=== PATIENT | male | born 1950 | race African-American/Black ===

== ENCOUNTER 2019-12-19 03:05 | Inpatient (IN) ==
[2019-12-19] MEDS ORDERED: ceFAZolin 1,000 MG VIAL IM ONE (03:20)
[2019-12-19 05:02] LABS: Basophils % 0.2 % (0.0-0.8); Hematocrit 44.2 VOL% (42.0-52.0); Hemoglobin 14.5 GM/DL (14.0-18.0); Immature Granulocytes % 0.4 %; Immature Granulocytes Absolute 0.04 #; Lymphocytes # 1.2 10*3/uL (1.4-4.0); Lymphocytes % 12.1 % (21.2-54.2); Mean Corpuscular HGB Conc 32.8 GM/DL (32-36); Mean Corpuscular Volume 86.8 FL (87-102); Mean Platelet Volume 10.5 FL (9.6-12.0); Monocytes % 6.5 % (1.7-12.7); Neutrophils % 80.8 % (38.7-73.9); Platelet Count 190 T/CUMM (130-400); Red Blood Count 5.09 MC/CUMM (3.8-5.5); Red Cell Distribution Width 14.6 % (9.3-17.3); White Blood Count 9.5 T/CUMM (4-12)
[2019-12-19 05:18] LABS: PT Patient Result 10.6 SECS (9.8-11.9)
[2019-12-19 05:24] LABS: Bilirubin,Total 0.8 MG/DL (0.2-1.0); Calcium 9.5 MG/DL (8.5-10.1); Osmolality,Calculated 264.4 MOS/KG (273-304); Total Protein 7.9 G/DL (6.4-8.3)
[2019-12-19] MEDS ORDERED: DEXTROSE 10% 250 ML BAG IV PRN (05:47)
[2019-12-19] MEDS ORDERED: ONDANSETRON 4 MG/2 ML VIAL IV PRN (05:47)
[2019-12-19] MEDS ORDERED: GLUCAGON 1 MG VIAL IM PRN (05:47)
[2019-12-19] MEDS ORDERED: MORPHINE 4 MG/1 ML VIAL SUBCUT PRN (05:55)
[2019-12-19] MEDS ORDERED: ceFAZolin 2,000 MG in PREMIX 1 EACH IV ONE (07:19)
[2019-12-19] MEDS ORDERED: BUPIVACAINE MPF 0.25% 30 ML VIAL ONE ×2 (07:51→08:31)
[2019-12-19] MEDS ORDERED: MORPHINE 4 MG/1 ML VIAL IV PRN ×2 (08:00)
[2019-12-19] MEDS ORDERED: DEXAMETHASONE 4 MG/1 ML VIAL ONE (08:31)
[2019-12-19] MEDS: LACTATED RINGERS 1,000 ML IV SCH ×2 (08:45→13:18)
[2019-12-19] MEDS ORDERED: BACITRACIN OINT 0.9 GM PACK TOP ONE (09:15)
[2019-12-19] MEDS ORDERED: ACETAMINOPHEN 325 MG TABLET PO PRN (10:04)
[2019-12-19] MEDS ORDERED: MAGNESIUM HYDROXIDE SUSP 30 ML UDCUP PO PRN (10:04)
[2019-12-19] MEDS ORDERED: propofoL 200 MG/20 ML VIAL IV ONE (10:17)
[2019-12-19] MEDS ORDERED: LIDOCAINE 2% 5 ML VIAL ONE (10:18)
[2019-12-19] MEDS ORDERED: SEVOFLURANE 1 UNIT/15 MINUTE INH ONE (10:18)
[2019-12-19] MEDS ORDERED: MIDAZOLAM 2 MG/2 ML VIAL ONE (10:18)
[2019-12-19] MEDS ORDERED: fentaNYL 100 MCG/2 ML VIAL ONE (10:19)
[2019-12-19] MEDS ORDERED: PHENYLEPHRINE 1 MG/10 ML SYRINGE IV ONE (10:19)
[2019-12-19] MEDS: ceFAZolin 2,000 MG in PREMIX 1 EACH IV SCH (16:32)
[2019-12-19] MEDS: APIXABAN 2.5 MG TABLET PO SCH (21:12)
[2019-12-20] MEDS: ceFAZolin 2,000 MG in PREMIX 1 EACH IV SCH (01:04)
[2019-12-20 06:43] LABS: Basophils % 0.1 % (0.0-0.8); Hematocrit 37.8 VOL% (42.0-52.0); Hemoglobin 12.5 GM/DL (14.0-18.0); Immature Granulocytes % 0.3 %; Immature Granulocytes Absolute 0.04 #; Lymphocytes # 1.7 10*3/uL (1.4-4.0); Lymphocytes % 13.6 % (21.2-54.2); Mean Corpuscular HGB Conc 33.1 GM/DL (32-36); Mean Corpuscular Volume 86.1 FL (87-102); Monocytes % 10.8 % (1.7-12.7); Neutrophils % 75.2 % (38.7-73.9); Platelet Count 171 T/CUMM (130-400); Red Blood Count 4.39 MC/CUMM (3.8-5.5); Red Cell Distribution Width 14.2 % (9.3-17.3); White Blood Count 12.8 T/CUMM (4-12)
[2019-12-20 07:17] LABS: Calcium 9.1 MG/DL (8.5-10.1); Osmolality,Calculated 268.2 MOS/KG (273-304)
[2019-12-20] MEDS ORDERED: ATORVASTATIN 20 MG TABLET PO SCH (09:00)
[2019-12-20] MEDS ORDERED: LOSARTAN/HCTZ 50-12.5 MG TABLET PO SCH (09:00)
[2019-12-20] MEDS: APIXABAN 2.5 MG TABLET PO SCH (09:32)
[2019-12-20] MEDS ORDERED: POLYETHYLENE GLYCOL POWDER 17 GM PACK PO SCH (11:30)
[2019-12-20 12:32] VITALS: BP 134/64
== END 2019-12-20 16:20 | disposition home health service (06) | DRG 494 ==
LOC: N.ED 03:05 → N.EDINP 05:47 → N.3E 06:50
PROVIDERS: ADMIT Internal Medicine; ATTEND Internal Medicine

== ENCOUNTER 2020-03-17 15:12 | Inpatient (IN) ==
[2020-03-17] MEDS ORDERED: ONDANSETRON 4 MG/2 ML VIAL IV PRN (15:20)
[2020-03-17 19:19] LABS: Basophils # 0.1 10*3/uL (0.0-0.2); Basophils % 0.6 % (0.0-0.8); Eosinophils # 0.1 10*3/uL (0.0-0.87); Eosinophils % 0.6 % (0.00-10.9); Hematocrit 32.9 VOL% (42.0-52.0); Hemoglobin 10.8 GM/DL (14.0-18.0); Immature Granulocytes % 0.2 %; Immature Granulocytes Absolute 0.02 #; Lymphocytes # 1.7 10*3/uL (1.4-4.0); Lymphocytes % 19.7 % (21.2-54.2); Mean Corpuscular HGB Conc 32.8 GM/DL (32-36); Mean Corpuscular Volume 85.2 FL (87-102); Mean Platelet Volume 10.1 FL (9.6-12.0); Monocytes % 7.7 % (1.7-12.7); Neutrophils % 71.2 % (38.7-73.9); Platelet Count 259 T/CUMM (130-400); Red Blood Count 3.86 MC/CUMM (3.8-5.5); Red Cell Distribution Width 14.7 % (9.3-17.3); White Blood Count 8.5 T/CUMM (4-12)
[2020-03-17 19:40] LABS: Osmolality,Calculated 270.1 MOS/KG (273-304)
[2020-03-17] MEDS: DOCUSATE SODIUM 100 MG CAPSULE PO SCH (20:41)
[2020-03-17] MEDS: PIPERACILLIN/TAZOBACTAM 3,375 MG in SODIUM CHLORIDE 0.9% 100 ML IV SCH (21:53)
[2020-03-18] MEDS: PIPERACILLIN/TAZOBACTAM 3,375 MG in SODIUM CHLORIDE 0.9% 100 ML IV SCH ×3 (04:04→21:45)
[2020-03-18] MEDS: PANTOPRAZOLE 40 MG TABLET PO SCH ×2 (05:09→10:01)
[2020-03-18] MEDS: ENOXAPARIN 30 MG/0.3 ML SYRINGE SUBCUT SCH (10:01)
[2020-03-18] MEDS: BACITRACIN OINT 0.9 GM PACK TOP SCH (10:01)
[2020-03-18] MEDS: SODIUM HYPOCHLORITE 0.25% IRRIG 473 ML BOTTLE TOP SCH (10:01)
[2020-03-18] MEDS: DOCUSATE SODIUM 100 MG CAPSULE PO SCH (21:44)
[2020-03-19] MEDS: PIPERACILLIN/TAZOBACTAM 3,375 MG in SODIUM CHLORIDE 0.9% 100 ML IV SCH ×3 (05:42→22:19)
[2020-03-19] MEDS: ENOXAPARIN 30 MG/0.3 ML SYRINGE SUBCUT SCH (09:49)
[2020-03-19] MEDS: BACITRACIN OINT 0.9 GM PACK TOP SCH (09:49)
[2020-03-19] MEDS: LOSARTAN/HCTZ 50-12.5 MG TABLET PO SCH (09:49)
[2020-03-19] MEDS: PANTOPRAZOLE 40 MG TABLET PO SCH (09:50)
[2020-03-19] MEDS: SODIUM HYPOCHLORITE 0.25% IRRIG 473 ML BOTTLE TOP SCH (09:50)
[2020-03-19] MEDS: LINEZOLID INJ 600 MG in PREMIX 1 EACH IV SCH ×2 (10:23→21:18)
[2020-03-19] MEDS: DOCUSATE SODIUM 100 MG CAPSULE PO SCH (21:18)
[2020-03-20] MEDS: PIPERACILLIN/TAZOBACTAM 3,375 MG in SODIUM CHLORIDE 0.9% 100 ML IV SCH ×3 (06:55→20:55)
[2020-03-20] MEDS: ENOXAPARIN 30 MG/0.3 ML SYRINGE SUBCUT SCH (09:55)
[2020-03-20] MEDS: PANTOPRAZOLE 40 MG TABLET PO SCH (09:55)
[2020-03-20] MEDS: LOSARTAN/HCTZ 50-12.5 MG TABLET PO SCH (09:55)
[2020-03-20] MEDS: LINEZOLID INJ 600 MG in PREMIX 1 EACH IV SCH (09:56)
[2020-03-20] MEDS: BACITRACIN OINT 0.9 GM PACK TOP SCH ×2 (16:08→23:25)
[2020-03-20] MEDS: DOCUSATE SODIUM 100 MG CAPSULE PO SCH (20:54)
[2020-03-20] MEDS: SODIUM HYPOCHLORITE 0.25% IRRIG 473 ML BOTTLE TOP SCH (23:25)
[2020-03-21] MEDS: LINEZOLID INJ 600 MG in PREMIX 1 EACH IV SCH ×2 (01:16→09:37)
[2020-03-21] MEDS: PIPERACILLIN/TAZOBACTAM 3,375 MG in SODIUM CHLORIDE 0.9% 100 ML IV SCH ×3 (04:58→20:17)
[2020-03-21] MEDS: LOSARTAN/HCTZ 50-12.5 MG TABLET PO SCH (09:35)
[2020-03-21] MEDS: ENOXAPARIN 30 MG/0.3 ML SYRINGE SUBCUT SCH (09:35)
[2020-03-21] MEDS: PANTOPRAZOLE 40 MG TABLET PO SCH (09:35)
[2020-03-21] MEDS: BACITRACIN OINT 0.9 GM PACK TOP SCH (09:35)
[2020-03-21] MEDS: SODIUM HYPOCHLORITE 0.25% IRRIG 473 ML BOTTLE TOP SCH (09:36)
[2020-03-21] MEDS: DOCUSATE SODIUM 100 MG CAPSULE PO SCH (20:18)
[2020-03-22] MEDS: LINEZOLID INJ 600 MG in PREMIX 1 EACH IV SCH ×2 (00:37→11:55)
[2020-03-22] MEDS: PIPERACILLIN/TAZOBACTAM 3,375 MG in SODIUM CHLORIDE 0.9% 100 ML IV SCH ×3 (04:00→20:49)
[2020-03-22] MEDS: BACITRACIN OINT 0.9 GM PACK TOP SCH (08:50)
[2020-03-22] MEDS: LOSARTAN/HCTZ 50-12.5 MG TABLET PO SCH (08:50)
[2020-03-22] MEDS: PANTOPRAZOLE 40 MG TABLET PO SCH (08:50)
[2020-03-22] MEDS: SODIUM HYPOCHLORITE 0.25% IRRIG 473 ML BOTTLE TOP SCH (08:50)
[2020-03-22] MEDS: ENOXAPARIN 30 MG/0.3 ML SYRINGE SUBCUT SCH (08:50)
[2020-03-22] MEDS: DOCUSATE SODIUM 100 MG CAPSULE PO SCH (20:49)
[2020-03-23] MEDS: LINEZOLID INJ 600 MG in PREMIX 1 EACH IV SCH ×2 (00:51→12:56)
[2020-03-23] MEDS: PIPERACILLIN/TAZOBACTAM 3,375 MG in SODIUM CHLORIDE 0.9% 100 ML IV SCH ×3 (03:23→20:26)
[2020-03-23] MEDS: ENOXAPARIN 40 MG/0.4 ML SYRINGE SUBCUT SCH (09:01)
[2020-03-23] MEDS: PANTOPRAZOLE 40 MG TABLET PO SCH (09:02)
[2020-03-23] MEDS: LOSARTAN/HCTZ 50-12.5 MG TABLET PO SCH (09:02)
[2020-03-23] MEDS: BACITRACIN OINT 0.9 GM PACK TOP SCH (09:02)
[2020-03-23] MEDS: SODIUM HYPOCHLORITE 0.25% IRRIG 473 ML BOTTLE TOP SCH (09:02)
[2020-03-23] MEDS: DOCUSATE SODIUM 100 MG CAPSULE PO SCH (20:25)
[2020-03-24] MEDS: LINEZOLID INJ 600 MG in PREMIX 1 EACH IV SCH ×2 (00:35→11:07)
[2020-03-24] MEDS: PIPERACILLIN/TAZOBACTAM 3,375 MG in SODIUM CHLORIDE 0.9% 100 ML IV SCH ×3 (04:45→20:32)
[2020-03-24 06:18] LABS: Basophils % 0.5 % (0.0-0.8); Eosinophils # 0.1 10*3/uL (0.0-0.87); Eosinophils % 0.9 % (0.00-10.9); Hematocrit 36.7 VOL% (42.0-52.0); Hemoglobin 11.9 GM/DL (14.0-18.0); Immature Granulocytes % 0.3 %; Immature Granulocytes Absolute 0.02 #; Lymphocytes # 1.8 10*3/uL (1.4-4.0); Lymphocytes % 22.2 % (21.2-54.2); Mean Corpuscular HGB Conc 32.4 GM/DL (32-36); Mean Corpuscular Volume 84.2 FL (87-102); Mean Platelet Volume 10.5 FL (9.6-12.0); Monocytes % 13.4 % (1.7-12.7); Neutrophils % 62.7 % (38.7-73.9); Platelet Count 250 T/CUMM (130-400); Red Blood Count 4.36 MC/CUMM (3.8-5.5); Red Cell Distribution Width 14.6 % (9.3-17.3); White Blood Count 7.9 T/CUMM (4-12)
[2020-03-24 06:39] LABS: Calcium 9.9 MG/DL (8.5-10.1); Osmolality,Calculated 271.1 MOS/KG (273-304)
[2020-03-24] MEDS: ENOXAPARIN 40 MG/0.4 ML SYRINGE SUBCUT SCH (09:00)
[2020-03-24] MEDS: LOSARTAN/HCTZ 50-12.5 MG TABLET PO SCH (09:00)
[2020-03-24] MEDS: PANTOPRAZOLE 40 MG TABLET PO SCH (09:00)
[2020-03-24] MEDS ORDERED: LORazepam 1 MG TABLET PO PRN (09:52)
[2020-03-24 10:41] LABS: Albumin 3.5 G/DL (3.4-5.0); Bilirubin,Direct 0.19 MG/DL (0.0-0.20); Bilirubin,Indirect 0.4 MG/DL (0.0-1.0); Bilirubin,Total 0.6 MG/DL (0.2-1.0); Total Protein 8.6 G/DL (6.4-8.3)
[2020-03-24] MEDS: THIAMINE 100 MG TABLET PO SCH (10:46)
[2020-03-24] MEDS: BACITRACIN OINT 0.9 GM PACK TOP SCH (10:46)
[2020-03-24] MEDS: FOLIC ACID 1 MG TABLET PO SCH (10:46)
[2020-03-24] MEDS: MULTIVITAMIN (CENTRUM) TABLET PO SCH (10:46)
[2020-03-24] MEDS: SODIUM HYPOCHLORITE 0.25% IRRIG 473 ML BOTTLE TOP SCH (10:46)
[2020-03-24 11:04] LABS: Folate 15.3 NG/ML (5.4-24.0); Vitamin B12 912 PG/ML (211-911)
[2020-03-24] MEDS ORDERED: TUBERCULIN SKIN TEST 0.1 ML SYRINGE INTRADERM ONE (12:54)
[2020-03-24 14:49] LABS: Apearance,Urine CLEAR (Clear); Bilirubin,Urine Negative (Negative); Blood, Urine Negative (Negative); Glucose,Urine (UA) Negative (Negative); Ketones,Urine Negative (Negative); Nitrite,Urine Negative (Negative); Protein,Urine Negative; RBC,Urine 1 /HPF (0-4); Squamous Epithelial Cell,Urine Occasional /HPF (0-10); Urine Color Straw (Yellow); Urine Specific Gravity 1.005 (1.001-1.035); Urine Urobilinogen < 2.0 EU/DL (0.2-1.0); WBC,Urine <1 /HPF (0-6)
[2020-03-24 14:56] LABS: Barbiturates Screen,Urine Negative (Negative); Benzodiazepines Screen,Urine Negative (Negative); Cannabinoid Screen,Urine Positive (Negative); Opiate Screen,Urine Positive (Negative); Phencyclidine Screen,Urine Negative (Negative)
[2020-03-24] MEDS: DOCUSATE SODIUM 100 MG CAPSULE PO SCH (20:32)
[2020-03-25] MEDS: LINEZOLID INJ 600 MG in PREMIX 1 EACH IV SCH ×2 (00:03→13:42)
[2020-03-25] MEDS: PIPERACILLIN/TAZOBACTAM 3,375 MG in SODIUM CHLORIDE 0.9% 100 ML IV SCH ×3 (04:27→20:47)
[2020-03-25] MEDS ORDERED: HALOPERIDOL 5 MG/ML AMP IM PRN (08:45)
[2020-03-25] MEDS: THIAMINE 100 MG TABLET PO SCH (10:12)
[2020-03-25] MEDS: POTASSIUM CHLORIDE 10 MEQ TABLET PO SCH (10:13)
[2020-03-25] MEDS: PANTOPRAZOLE 40 MG TABLET PO SCH (10:13)
[2020-03-25] MEDS: SODIUM HYPOCHLORITE 0.25% IRRIG 473 ML BOTTLE TOP SCH (10:13)
[2020-03-25] MEDS: FOLIC ACID 1 MG TABLET PO SCH (10:13)
[2020-03-25] MEDS: LOSARTAN/HCTZ 50-12.5 MG TABLET PO SCH (10:13)
[2020-03-25] MEDS: ATORVASTATIN 40 MG TABLET PO SCH (10:13)
[2020-03-25] MEDS: BACITRACIN OINT 0.9 GM PACK TOP SCH (10:14)
[2020-03-25] MEDS: ASPIRIN EC 81 MG TABLET PO SCH (10:14)
[2020-03-25] MEDS: ENOXAPARIN 40 MG/0.4 ML SYRINGE SUBCUT SCH (10:14)
[2020-03-25] MEDS: LORazepam 1 MG TABLET PO SCH ×3 (12:26→20:47)
[2020-03-25] MEDS: MULTIVITAMIN (CENTRUM) TABLET PO SCH (12:27)
[2020-03-25 15:30] LABS: INR 1.1; PT Patient Result 11.4 SECS (9.8-11.9)
[2020-03-25] MEDS ORDERED: QUEtiapine 25 MG TABLET PO ONE (20:00)
[2020-03-25] MEDS: DOCUSATE SODIUM 100 MG CAPSULE PO SCH (20:47)
[2020-03-26] MEDS: LINEZOLID INJ 600 MG in PREMIX 1 EACH IV SCH ×2 (00:48→15:24)
[2020-03-26] MEDS: LORazepam 1 MG TABLET PO SCH ×3 (02:02→15:24)
[2020-03-26] MEDS: PIPERACILLIN/TAZOBACTAM 3,375 MG in SODIUM CHLORIDE 0.9% 100 ML IV SCH ×3 (04:46→20:41)
[2020-03-26 06:37] LABS: Basophils # 0.1 10*3/uL (0.0-0.2); Basophils % 0.5 % (0.0-0.8); Eosinophils % 0.4 % (0.00-10.9); Hematocrit 34.7 VOL% (42.0-52.0); Hemoglobin 11.1 GM/DL (14.0-18.0); Immature Granulocytes % 0.2 %; Immature Granulocytes Absolute 0.02 #; Lymphocytes # 1.3 10*3/uL (1.4-4.0); Lymphocytes % 13.8 % (21.2-54.2); Mean Corpuscular Volume 84.6 FL (87-102); Mean Platelet Volume 9.7 FL (9.6-12.0); Monocytes % 11.8 % (1.7-12.7); Neutrophils % 73.3 % (38.7-73.9); Platelet Count 239 T/CUMM (130-400); Red Cell Distribution Width 14.5 % (9.3-17.3); White Blood Count 9.5 T/CUMM (4-12)
[2020-03-26 07:09] LABS: Calcium 9.7 MG/DL (8.5-10.1); Osmolality,Calculated 276.5 MOS/KG (273-304)
[2020-03-26] MEDS ORDERED: MAGNESIUM SULF RIDER 2 GM in PREMIX 1 EACH IV PRN (07:12)
[2020-03-26] MEDS ORDERED: MAGNESIUM SULF RIDER 4 GM in PREMIX 1 EACH IV PRN (07:12)
[2020-03-26] MEDS: LOSARTAN/HCTZ 50-12.5 MG TABLET PO SCH (11:00)
[2020-03-26] MEDS ORDERED: ceFAZolin 1,000 MG in SYRINGE 1 EACH IV ONE (12:00)
[2020-03-26] MEDS ORDERED: HEPARIN/NACL 0.9% 2 UNITS/ML 2,000 ML IV ONE (12:39)
[2020-03-26] MEDS ORDERED: DEXMEDETOMIDINE 200 MCG/2 ML VIAL ONE (13:14)
[2020-03-26] MEDS ORDERED: ceFAZolin 1,000 MG VIAL ONE (14:07)
[2020-03-26] MEDS: BACITRACIN OINT 0.9 GM PACK TOP SCH (15:21)
[2020-03-26] MEDS: ASPIRIN EC 81 MG TABLET PO SCH (15:21)
[2020-03-26] MEDS: MULTIVITAMIN (CENTRUM) TABLET PO SCH (15:21)
[2020-03-26] MEDS: POTASSIUM CHLORIDE 10 MEQ TABLET PO SCH (15:22)
[2020-03-26] MEDS: ENOXAPARIN 40 MG/0.4 ML SYRINGE SUBCUT SCH (15:22)
[2020-03-26] MEDS: SODIUM HYPOCHLORITE 0.25% IRRIG 473 ML BOTTLE TOP SCH (15:22)
[2020-03-26] MEDS: FOLIC ACID 1 MG TABLET PO SCH (15:22)
[2020-03-26] MEDS: ATORVASTATIN 40 MG TABLET PO SCH (15:22)
[2020-03-26] MEDS: PANTOPRAZOLE 40 MG TABLET PO SCH (15:23)
[2020-03-26] MEDS: THIAMINE 100 MG TABLET PO SCH (15:23)
[2020-03-26] MEDS: LORazepam 2 MG/1 ML VIAL IV SCH ×2 (15:23→18:04)
[2020-03-26] MEDS ORDERED: fentaNYL 100 MCG/2 ML VIAL ONE (15:25)
[2020-03-26] MEDS ORDERED: TUBERCULIN SKIN TEST 0.1 ML SYRINGE INTRADERM ONE (17:00)
[2020-03-26] MEDS: DOCUSATE SODIUM 100 MG CAPSULE PO SCH (20:41)
[2020-03-26] MEDS ORDERED: QUEtiapine 25 MG TABLET PO ONE (21:00)
[2020-03-27] MEDS: LORazepam 2 MG/1 ML VIAL IV SCH ×2 (00:30→06:25)
[2020-03-27] MEDS: LINEZOLID INJ 600 MG in PREMIX 1 EACH IV SCH ×2 (00:42→14:54)
[2020-03-27] MEDS: PIPERACILLIN/TAZOBACTAM 3,375 MG in SODIUM CHLORIDE 0.9% 100 ML IV SCH ×3 (05:07→20:55)
[2020-03-27 06:26] LABS: Basophils % 0.4 % (0.0-0.8); Eosinophils # 0.1 10*3/uL (0.0-0.87); Eosinophils % 0.5 % (0.00-10.9); Hematocrit 33.3 VOL% (42.0-52.0); Hemoglobin 10.9 GM/DL (14.0-18.0); Immature Granulocytes % 0.3 %; Immature Granulocytes Absolute 0.03 #; Lymphocytes # 1.2 10*3/uL (1.4-4.0); Mean Corpuscular HGB Conc 32.7 GM/DL (32-36); Mean Corpuscular Volume 83.5 FL (87-102); Mean Platelet Volume 9.8 FL (9.6-12.0); Monocytes % 10.2 % (1.7-12.7); Neutrophils % 76.6 % (38.7-73.9); Platelet Count 214 T/CUMM (130-400); Red Blood Count 3.99 MC/CUMM (3.8-5.5); Red Cell Distribution Width 14.6 % (9.3-17.3); White Blood Count 9.7 T/CUMM (4-12)
[2020-03-27 06:50] LABS: Osmolality,Calculated 272.7 MOS/KG (273-304)
[2020-03-27] MEDS: LOSARTAN/HCTZ 50-12.5 MG TABLET PO SCH (09:41)
[2020-03-27] MEDS: POTASSIUM CHLORIDE 10 MEQ TABLET PO SCH (09:41)
[2020-03-27] MEDS: BACITRACIN OINT 0.9 GM PACK TOP SCH (09:41)
[2020-03-27] MEDS: ASPIRIN EC 81 MG TABLET PO SCH (09:41)
[2020-03-27] MEDS: MULTIVITAMIN (CENTRUM) TABLET PO SCH (09:41)
[2020-03-27] MEDS: FOLIC ACID 1 MG TABLET PO SCH (09:42)
[2020-03-27] MEDS: THIAMINE 100 MG TABLET PO SCH (09:42)
[2020-03-27] MEDS: ENOXAPARIN 40 MG/0.4 ML SYRINGE SUBCUT SCH (09:42)
[2020-03-27] MEDS: ATORVASTATIN 40 MG TABLET PO SCH (09:42)
[2020-03-27] MEDS: PANTOPRAZOLE 40 MG TABLET PO SCH (09:42)
[2020-03-27] MEDS ORDERED: LORazepam 2 MG/1 ML VIAL IV PRN (09:47)
[2020-03-27] MEDS: SODIUM HYPOCHLORITE 0.25% IRRIG 473 ML BOTTLE TOP SCH (12:06)
[2020-03-27] MEDS: POTASSIUM CHLORIDE 20 MEQ TABLET PO PRN ×4 (12:34→20:53)
[2020-03-27] MEDS: QUEtiapine 25 MG TABLET PO PRN (20:54)
[2020-03-27] MEDS: DOCUSATE SODIUM 100 MG CAPSULE PO SCH (20:55)
[2020-03-28] MEDS: LINEZOLID INJ 600 MG in PREMIX 1 EACH IV SCH (01:02)
[2020-03-28] MEDS: PIPERACILLIN/TAZOBACTAM 3,375 MG in SODIUM CHLORIDE 0.9% 100 ML IV SCH ×3 (04:27→20:40)
[2020-03-28 05:55] LABS: Basophils # 0.1 10*3/uL (0.0-0.2); Basophils % 0.6 % (0.0-0.8); Eosinophils # 0.1 10*3/uL (0.0-0.87); Eosinophils % 0.8 % (0.00-10.9); Immature Granulocytes % 0.4 %; Immature Granulocytes Absolute 0.04 #; Lymphocytes # 1.3 10*3/uL (1.4-4.0); Lymphocytes % 12.4 % (21.2-54.2); Mean Corpuscular HGB Conc 32.3 GM/DL (32-36); Mean Corpuscular Volume 85.2 FL (87-102); Mean Platelet Volume 9.6 FL (9.6-12.0); Monocytes % 11.7 % (1.7-12.7); Neutrophils % 74.1 % (38.7-73.9); Platelet Count 218 T/CUMM (130-400); Red Blood Count 3.64 MC/CUMM (3.8-5.5); Red Cell Distribution Width 14.6 % (9.3-17.3); White Blood Count 10.6 T/CUMM (4-12)
[2020-03-28 06:22] LABS: Calcium 9.2 MG/DL (8.5-10.1); Osmolality,Calculated 273.7 MOS/KG (273-304)
[2020-03-28] MEDS: MULTIVITAMIN (CENTRUM) TABLET PO SCH (09:42)
[2020-03-28] MEDS: BACITRACIN OINT 0.9 GM PACK TOP SCH (09:42)
[2020-03-28] MEDS: ASPIRIN EC 81 MG TABLET PO SCH (09:42)
[2020-03-28] MEDS: FOLIC ACID 1 MG TABLET PO SCH (09:43)
[2020-03-28] MEDS: ATORVASTATIN 40 MG TABLET PO SCH (09:43)
[2020-03-28] MEDS: ENOXAPARIN 40 MG/0.4 ML SYRINGE SUBCUT SCH (09:43)
[2020-03-28] MEDS: SODIUM HYPOCHLORITE 0.25% IRRIG 473 ML BOTTLE TOP SCH (09:43)
[2020-03-28] MEDS: LOSARTAN/HCTZ 50-12.5 MG TABLET PO SCH (09:43)
[2020-03-28] MEDS: THIAMINE 100 MG TABLET PO SCH (09:44)
[2020-03-28] MEDS: PANTOPRAZOLE 40 MG TABLET PO SCH (09:44)
[2020-03-28] MEDS ORDERED: BUPIVACAINE MPF 0.25% 30 ML VIAL ONE (11:39)
[2020-03-28] MEDS ORDERED: LIDOCAINE 1% 20 ML VIAL ONE (11:40)
[2020-03-28] MEDS ORDERED: DEXMEDETOMIDINE 200 MCG/2 ML VIAL ONE (11:51)
[2020-03-28] MEDS ORDERED: LACTATED RINGERS 1,000 ML IV SCH (12:00)
[2020-03-28] MEDS ORDERED: SEVOFLURANE 1 UNIT/15 MINUTE INH ONE (12:58)
[2020-03-28] MEDS ORDERED: LIDOCAINE 2% 5 ML VIAL ONE (12:58)
[2020-03-28] MEDS ORDERED: propofoL 200 MG/20 ML VIAL IV ONE (12:58)
[2020-03-28] MEDS ORDERED: KETAMINE 500 MG/10 ML VIAL ONE (12:59)
[2020-03-28] MEDS ORDERED: fentaNYL 100 MCG/2 ML VIAL ONE (12:59)
[2020-03-28] MEDS ORDERED: PHENYLEPHRINE 1 MG/10 ML SYRINGE IV ONE (12:59)
[2020-03-28] MEDS ORDERED: DEXTROSE 50% 25 GM/50 ML VIAL IV PRN (13:44)
[2020-03-28] MEDS ORDERED: GLUCAGON 1 MG VIAL IM PRN (13:44)
[2020-03-28] MEDS: INSULIN REGULAR 100 UNIT/ML SUBCUT SCH ×2 (16:23→20:47)
[2020-03-28] MEDS: DOCUSATE SODIUM 100 MG CAPSULE PO SCH (20:38)
[2020-03-28] MEDS: QUEtiapine 25 MG TABLET PO PRN (20:39)
[2020-03-28] MEDS: ACETAMINOPHEN 325 MG TABLET PO PRN (22:47)
[2020-03-29] MEDS: LINEZOLID INJ 600 MG in PREMIX 1 EACH IV SCH ×2 (00:50→13:46)
[2020-03-29] MEDS: PIPERACILLIN/TAZOBACTAM 3,375 MG in SODIUM CHLORIDE 0.9% 100 ML IV SCH ×3 (04:05→20:47)
[2020-03-29] MEDS: ACETAMINOPHEN 325 MG TABLET PO PRN (04:31)
[2020-03-29 06:17] LABS: Basophils % 0.3 % (0.0-0.8); Eosinophils % 0.2 % (0.00-10.9); Hematocrit 31.8 VOL% (42.0-52.0); Hemoglobin 10.1 GM/DL (14.0-18.0); Immature Granulocytes % 0.4 %; Immature Granulocytes Absolute 0.05 #; Lymphocytes # 1.4 10*3/uL (1.4-4.0); Lymphocytes % 10.6 % (21.2-54.2); Mean Corpuscular HGB Conc 31.8 GM/DL (32-36); Mean Corpuscular Volume 86.4 FL (87-102); Mean Platelet Volume 10.2 FL (9.6-12.0); Monocytes % 11.8 % (1.7-12.7); Neutrophils % 76.7 % (38.7-73.9); Platelet Count 190 T/CUMM (130-400); Red Blood Count 3.68 MC/CUMM (3.8-5.5); Red Cell Distribution Width 14.8 % (9.3-17.3); White Blood Count 13.1 T/CUMM (4-12)
[2020-03-29 06:37] LABS: Calcium 9.6 MG/DL (8.5-10.1)
[2020-03-29] MEDS: INSULIN REGULAR 100 UNIT/ML SUBCUT SCH ×4 (07:53→20:48)
[2020-03-29] MEDS: ATORVASTATIN 40 MG TABLET PO SCH (08:35)
[2020-03-29] MEDS: ASPIRIN EC 81 MG TABLET PO SCH (08:35)
[2020-03-29] MEDS: FOLIC ACID 1 MG TABLET PO SCH (08:35)
[2020-03-29] MEDS: MULTIVITAMIN (CENTRUM) TABLET PO SCH (08:36)
[2020-03-29] MEDS: BACITRACIN OINT 0.9 GM PACK TOP SCH (08:36)
[2020-03-29] MEDS: LOSARTAN/HCTZ 50-12.5 MG TABLET PO SCH (08:36)
[2020-03-29] MEDS: THIAMINE 100 MG TABLET PO SCH (08:43)
[2020-03-29] MEDS: ENOXAPARIN 40 MG/0.4 ML SYRINGE SUBCUT SCH (08:44)
[2020-03-29] MEDS: PANTOPRAZOLE 40 MG TABLET PO SCH (08:44)
[2020-03-29] MEDS: SODIUM HYPOCHLORITE 0.25% IRRIG 473 ML BOTTLE TOP SCH (08:54)
[2020-03-29] MEDS: DOCUSATE SODIUM 100 MG CAPSULE PO SCH (20:49)
[2020-03-29] MEDS: QUEtiapine 25 MG TABLET PO PRN (20:49)
[2020-03-30] MEDS: LINEZOLID INJ 600 MG in PREMIX 1 EACH IV SCH ×2 (01:45→12:20)
[2020-03-30] MEDS: PIPERACILLIN/TAZOBACTAM 3,375 MG in SODIUM CHLORIDE 0.9% 100 ML IV SCH ×3 (04:12→23:12)
[2020-03-30] MEDS: ACETAMINOPHEN 325 MG TABLET PO PRN (05:05)
[2020-03-30] MEDS: INSULIN REGULAR 100 UNIT/ML SUBCUT SCH ×4 (09:59→20:42)
[2020-03-30] MEDS: ASPIRIN EC 81 MG TABLET PO SCH (10:00)
[2020-03-30] MEDS: FOLIC ACID 1 MG TABLET PO SCH (10:00)
[2020-03-30] MEDS: LOSARTAN/HCTZ 50-12.5 MG TABLET PO SCH (10:00)
[2020-03-30] MEDS: PANTOPRAZOLE 40 MG TABLET PO SCH (10:00)
[2020-03-30] MEDS: MULTIVITAMIN (CENTRUM) TABLET PO SCH (10:00)
[2020-03-30] MEDS: BACITRACIN OINT 0.9 GM PACK TOP SCH (10:00)
[2020-03-30] MEDS: ATORVASTATIN 40 MG TABLET PO SCH (10:00)
[2020-03-30] MEDS: ENOXAPARIN 40 MG/0.4 ML SYRINGE SUBCUT SCH (10:00)
[2020-03-30] MEDS: THIAMINE 100 MG TABLET PO SCH (10:00)
[2020-03-30] MEDS: SODIUM HYPOCHLORITE 0.25% IRRIG 473 ML BOTTLE TOP SCH (11:32)
[2020-03-30] MEDS: DOCUSATE SODIUM 100 MG CAPSULE PO SCH (20:42)
[2020-03-30] MEDS: QUEtiapine 25 MG TABLET PO PRN (20:59)
[2020-03-31] MEDS: LINEZOLID INJ 600 MG in PREMIX 1 EACH IV SCH ×2 (04:02→20:13)
[2020-03-31] MEDS: PIPERACILLIN/TAZOBACTAM 3,375 MG in SODIUM CHLORIDE 0.9% 100 ML IV SCH ×3 (07:24→22:58)
[2020-03-31] MEDS: INSULIN REGULAR 100 UNIT/ML SUBCUT SCH ×4 (08:36→22:31)
[2020-03-31] MEDS: ATORVASTATIN 40 MG TABLET PO SCH (09:34)
[2020-03-31] MEDS: LOSARTAN/HCTZ 50-12.5 MG TABLET PO SCH (09:34)
[2020-03-31] MEDS: ENOXAPARIN 40 MG/0.4 ML SYRINGE SUBCUT SCH (09:34)
[2020-03-31] MEDS: PANTOPRAZOLE 40 MG TABLET PO SCH (09:34)
[2020-03-31] MEDS: FOLIC ACID 1 MG TABLET PO SCH (09:34)
[2020-03-31] MEDS: ASPIRIN EC 81 MG TABLET PO SCH (09:34)
[2020-03-31] MEDS: THIAMINE 100 MG TABLET PO SCH (09:35)
[2020-03-31] MEDS: MULTIVITAMIN (CENTRUM) TABLET PO SCH (09:35)
[2020-03-31] MEDS: BACITRACIN OINT 0.9 GM PACK TOP SCH (14:56)
[2020-03-31] MEDS: SODIUM HYPOCHLORITE 0.25% IRRIG 473 ML BOTTLE TOP SCH (14:57)
[2020-03-31] MEDS: DOCUSATE SODIUM 100 MG CAPSULE PO SCH (20:14)
[2020-04-01] MEDS: LINEZOLID INJ 600 MG in PREMIX 1 EACH IV SCH (05:12)
[2020-04-01] MEDS: PIPERACILLIN/TAZOBACTAM 3,375 MG in SODIUM CHLORIDE 0.9% 100 ML IV SCH ×2 (07:04→17:24)
[2020-04-01] MEDS: INSULIN REGULAR 100 UNIT/ML SUBCUT SCH ×4 (08:00→21:15)
[2020-04-01] MEDS: PANTOPRAZOLE 40 MG TABLET PO SCH (10:26)
[2020-04-01] MEDS: THIAMINE 100 MG TABLET PO SCH (10:26)
[2020-04-01] MEDS: LOSARTAN/HCTZ 50-12.5 MG TABLET PO SCH (10:26)
[2020-04-01] MEDS: ATORVASTATIN 40 MG TABLET PO SCH (10:26)
[2020-04-01] MEDS: FOLIC ACID 1 MG TABLET PO SCH (10:26)
[2020-04-01] MEDS: ASPIRIN EC 81 MG TABLET PO SCH (10:26)
[2020-04-01] MEDS: MULTIVITAMIN (CENTRUM) TABLET PO SCH (10:26)
[2020-04-01] MEDS: ENOXAPARIN 40 MG/0.4 ML SYRINGE SUBCUT SCH (10:27)
[2020-04-01] MEDS: SODIUM HYPOCHLORITE 0.25% IRRIG 473 ML BOTTLE TOP SCH (10:28)
[2020-04-01] MEDS: BACITRACIN OINT 0.9 GM PACK TOP SCH (10:28)
[2020-04-01] MEDS: DOCUSATE SODIUM 100 MG CAPSULE PO SCH (21:12)
[2020-04-02] MEDS: LINEZOLID INJ 600 MG in PREMIX 1 EACH IV SCH ×3 (00:02→17:15)
[2020-04-02] MEDS: PIPERACILLIN/TAZOBACTAM 3,375 MG in SODIUM CHLORIDE 0.9% 100 ML IV SCH ×4 (00:35→18:36)
[2020-04-02] MEDS: PANTOPRAZOLE 40 MG TABLET PO SCH (09:31)
[2020-04-02] MEDS: ENOXAPARIN 40 MG/0.4 ML SYRINGE SUBCUT SCH (09:31)
[2020-04-02] MEDS: ASPIRIN EC 81 MG TABLET PO SCH (09:31)
[2020-04-02] MEDS: THIAMINE 100 MG TABLET PO SCH (09:32)
[2020-04-02] MEDS: MULTIVITAMIN (CENTRUM) TABLET PO SCH (09:32)
[2020-04-02] MEDS: ATORVASTATIN 40 MG TABLET PO SCH (09:32)
[2020-04-02] MEDS: LOSARTAN/HCTZ 50-12.5 MG TABLET PO SCH (09:33)
[2020-04-02] MEDS: FOLIC ACID 1 MG TABLET PO SCH (09:33)
[2020-04-02] MEDS: BACITRACIN OINT 0.9 GM PACK TOP SCH (09:33)
[2020-04-02] MEDS: INSULIN REGULAR 100 UNIT/ML SUBCUT SCH ×4 (12:40→21:34)
[2020-04-02] MEDS: SODIUM HYPOCHLORITE 0.25% IRRIG 473 ML BOTTLE TOP SCH (12:42)
[2020-04-02] MEDS: DOCUSATE SODIUM 100 MG CAPSULE PO SCH (20:59)
[2020-04-02] MEDS: QUEtiapine 25 MG TABLET PO PRN (21:38)
[2020-04-03] MEDS: PIPERACILLIN/TAZOBACTAM 3,375 MG in SODIUM CHLORIDE 0.9% 100 ML IV SCH ×3 (01:46→18:24)
[2020-04-03] MEDS: INSULIN REGULAR 100 UNIT/ML SUBCUT SCH ×4 (08:00→23:57)
[2020-04-03] MEDS: THIAMINE 100 MG TABLET PO SCH (09:05)
[2020-04-03] MEDS: ATORVASTATIN 40 MG TABLET PO SCH (09:05)
[2020-04-03] MEDS: FOLIC ACID 1 MG TABLET PO SCH (09:05)
[2020-04-03] MEDS: LOSARTAN/HCTZ 50-12.5 MG TABLET PO SCH (09:05)
[2020-04-03] MEDS: BACITRACIN OINT 0.9 GM PACK TOP SCH (09:05)
[2020-04-03] MEDS: PANTOPRAZOLE 40 MG TABLET PO SCH (09:05)
[2020-04-03] MEDS: SODIUM HYPOCHLORITE 0.25% IRRIG 473 ML BOTTLE TOP SCH (09:06)
[2020-04-03] MEDS: MULTIVITAMIN (CENTRUM) TABLET PO SCH (09:06)
[2020-04-03] MEDS: ASPIRIN EC 81 MG TABLET PO SCH (09:06)
[2020-04-03] MEDS: ENOXAPARIN 40 MG/0.4 ML SYRINGE SUBCUT SCH (09:26)
[2020-04-03] MEDS: QUEtiapine 25 MG TABLET PO PRN (20:42)
[2020-04-03] MEDS: DOCUSATE SODIUM 100 MG CAPSULE PO SCH (20:42)
[2020-04-04] MEDS: PIPERACILLIN/TAZOBACTAM 3,375 MG in SODIUM CHLORIDE 0.9% 100 ML IV SCH ×2 (04:51→12:18)
[2020-04-04] MEDS: INSULIN REGULAR 100 UNIT/ML SUBCUT SCH ×2 (07:44→11:20)
[2020-04-04] MEDS: MULTIVITAMIN (CENTRUM) TABLET PO SCH (08:53)
[2020-04-04] MEDS: FOLIC ACID 1 MG TABLET PO SCH (08:53)
[2020-04-04] MEDS: BACITRACIN OINT 0.9 GM PACK TOP SCH (08:53)
[2020-04-04] MEDS: SODIUM HYPOCHLORITE 0.25% IRRIG 473 ML BOTTLE TOP SCH (08:53)
[2020-04-04] MEDS: LOSARTAN/HCTZ 50-12.5 MG TABLET PO SCH (08:53)
[2020-04-04] MEDS: THIAMINE 100 MG TABLET PO SCH (08:53)
[2020-04-04] MEDS: PANTOPRAZOLE 40 MG TABLET PO SCH (08:53)
[2020-04-04] MEDS: ATORVASTATIN 40 MG TABLET PO SCH (08:53)
[2020-04-04] MEDS: ASPIRIN EC 81 MG TABLET PO SCH (08:53)
[2020-04-04] MEDS: ENOXAPARIN 40 MG/0.4 ML SYRINGE SUBCUT SCH (09:10)
[2020-04-04 11:43] VITALS: BP 120/64
== END 2020-04-04 14:20 | disposition home health service (06) | DRG 580 ==
LOC: N.3E 18:02
PROVIDERS: ADMIT Surgery; ATTEND Surgery

== ENCOUNTER 2020-06-17 06:15 | Inpatient (IN) ==
[2020-06-12 15:53] LABS: Basophils % 0.4 % (0.0-0.8); Eosinophils # 0.3 10*3/uL (0.0-0.87); Eosinophils % 4.5 % (0.00-10.9); Hematocrit 31.3 VOL% (42.0-52.0); Hemoglobin 9.5 GM/DL (14.0-18.0); Immature Granulocytes % 0.7 %; Immature Granulocytes Absolute 0.05 #; Lymphocytes # 1.6 10*3/uL (1.4-4.0); Lymphocytes % 21.1 % (21.2-54.2); Mean Corpuscular HGB Conc 30.4 GM/DL (32-36); Mean Corpuscular Volume 81.5 FL (87-102); Mean Platelet Volume 9.9 FL (9.6-12.0); Monocytes % 9.2 % (1.7-12.7); Neutrophils % 64.1 % (38.7-73.9); Platelet Count 374 T/CUMM (130-400); Red Blood Count 3.84 MC/CUMM (3.8-5.5); Red Cell Distribution Width 17.6 % (9.3-17.3); White Blood Count 7.4 T/CUMM (4-12)
[2020-06-12 16:12] LABS: Calcium 9.4 MG/DL (8.5-10.1)
[2020-06-17] MEDS ORDERED: ceFAZolin 2,000 MG in PREMIX 1 EACH IV ONE (06:30)
[2020-06-17] MEDS ORDERED: FAMOTIDINE 20 MG TABLET PO ONE (06:35)
[2020-06-17] MEDS ORDERED: ALBUTEROL 2.5 MG/3 ML NEB RESP TX ONE (06:35)
[2020-06-17] MEDS ORDERED: DIAZEPAM 5 MG TABLET PO ONE (06:35)
[2020-06-17] MEDS ORDERED: LIDOCAINE 1%/EPI INJ 20 ML VIAL ONE ×2 (06:43→07:24)
[2020-06-17] MEDS ORDERED: LIDOCAINE 1% 20 ML VIAL ONE ×2 (06:43→07:24)
[2020-06-17] MEDS ORDERED: LACTATED RINGERS 1,000 ML IV SCH (07:00)
[2020-06-17] MEDS ORDERED: ONDANSETRON 4 MG/2 ML VIAL ONE ×2 (08:03→08:06)
[2020-06-17] MEDS ORDERED: HYDROmorphone 2 MG/1 ML VIAL ONE (08:03)
[2020-06-17] MEDS: HYDROmorphone 2 MG/1 ML VIAL IV PRN ×2 (08:05→08:45)
[2020-06-17] MEDS ORDERED: LIDOCAINE 2% 5 ML VIAL ONE (08:05)
[2020-06-17] MEDS ORDERED: SEVOFLURANE 1 UNIT/15 MINUTE INH ONE (08:05)
[2020-06-17] MEDS ORDERED: propofoL 200 MG/20 ML VIAL IV ONE (08:05)
[2020-06-17] MEDS ORDERED: KETAMINE 500 MG/10 ML VIAL ONE (08:06)
[2020-06-17] MEDS ORDERED: fentaNYL 100 MCG/2 ML VIAL ONE (08:06)
[2020-06-17] MEDS ORDERED: PHENYLEPHRINE 1 MG/10 ML SYRINGE IV ONE (08:06)
[2020-06-17] MEDS ORDERED: ONDANSETRON 4 MG/2 ML VIAL IV PRN ×2 (08:14→13:34)
[2020-06-17] MEDS ORDERED: hydrALAZINE 20 MG/1 ML VIAL ONE (09:40)
[2020-06-17] MEDS ORDERED: hydrALAZINE 20 MG/1 ML VIAL IV ONE (09:41)
[2020-06-17] MEDS ORDERED: MEPERIDINE 25 MG/1 ML VIAL IV PRN (11:05)
[2020-06-17] MEDS ORDERED: MEPERIDINE 25 MG/1 ML VIAL ONE (11:06)
[2020-06-17] MEDS ORDERED: PROMETHAZINE 25 MG/1 ML VIAL IM PRN (13:34)
[2020-06-17] MEDS: LACTATED RINGERS 1,000 ML IV SCH (14:36)
[2020-06-18] MEDS ORDERED: ENOXAPARIN 40 MG/0.4 ML SYRINGE ONE (07:58)
[2020-06-18] MEDS: POTASSIUM CHLORIDE 10 MEQ TABLET PO SCH (08:14)
[2020-06-18] MEDS: ASPIRIN 325 MG TABLET PO SCH (08:14)
[2020-06-18] MEDS: ENOXAPARIN 40 MG/0.4 ML SYRINGE SUBCUT SCH (08:14)
[2020-06-18] MEDS: ATORVASTATIN 40 MG TABLET PO SCH (08:14)
[2020-06-18 08:42] LABS: Basophils % 0.2 % (0.0-0.8); Eosinophils # 0.2 10*3/uL (0.0-0.87); Eosinophils % 2.5 % (0.00-10.9); Hematocrit 31.4 VOL% (42.0-52.0); Hemoglobin 9.6 GM/DL (14.0-18.0); Immature Granulocytes % 0.3 %; Immature Granulocytes Absolute 0.03 #; Lymphocytes # 1.3 10*3/uL (1.4-4.0); Lymphocytes % 14.1 % (21.2-54.2); Mean Corpuscular HGB Conc 30.6 GM/DL (32-36); Mean Corpuscular Volume 82.2 FL (87-102); Mean Platelet Volume 9.8 FL (9.6-12.0); Monocytes % 7.1 % (1.7-12.7); Neutrophils % 75.8 % (38.7-73.9); Platelet Count 343 T/CUMM (130-400); Red Blood Count 3.82 MC/CUMM (3.8-5.5); Red Cell Distribution Width 18.2 % (9.3-17.3)
[2020-06-18 09:07] LABS: Calcium 9.9 MG/DL (8.5-10.1); Osmolality,Calculated 275.7 MOS/KG (273-304)
[2020-06-18] MEDS: LEVOFLOXACIN INJ 500 MG in PREMIX 1 EACH IV SCH (09:43)
[2020-06-18] MEDS: CLINDAMYCIN INJ 900 MG in PREMIX 1 EACH IV SCH ×2 (11:18→20:39)
[2020-06-18] MEDS: LACTATED RINGERS 1,000 ML IV SCH (11:18)
[2020-06-19] MEDS: SODIUM HYPOCHLORITE 0.25% IRR 1 APPLIC in IV BAG 1 EACH IRRIG PRN (04:06)
[2020-06-19] MEDS: CLINDAMYCIN INJ 900 MG in PREMIX 1 EACH IV SCH ×3 (04:30→20:33)
[2020-06-19] MEDS: LACTATED RINGERS 1,000 ML IV SCH ×2 (04:38→08:03)
[2020-06-19] MEDS: ENOXAPARIN 40 MG/0.4 ML SYRINGE SUBCUT SCH (08:11)
[2020-06-19] MEDS: POTASSIUM CHLORIDE 10 MEQ TABLET PO SCH (08:11)
[2020-06-19] MEDS: LEVOFLOXACIN INJ 500 MG in PREMIX 1 EACH IV SCH (08:11)
[2020-06-19] MEDS: ATORVASTATIN 40 MG TABLET PO SCH (08:11)
[2020-06-19] MEDS: ASPIRIN 325 MG TABLET PO SCH (08:11)
[2020-06-20] MEDS: LACTATED RINGERS 1,000 ML IV SCH (05:33)
[2020-06-20] MEDS: CLINDAMYCIN INJ 900 MG in PREMIX 1 EACH IV SCH ×3 (05:38→20:00)
[2020-06-20] MEDS: SODIUM HYPOCHLORITE 0.25% IRR 1 APPLIC in IV BAG 1 EACH IRRIG PRN (05:46)
[2020-06-20] MEDS: ASPIRIN 325 MG TABLET PO SCH (08:41)
[2020-06-20] MEDS: ENOXAPARIN 40 MG/0.4 ML SYRINGE SUBCUT SCH (08:41)
[2020-06-20] MEDS: LEVOFLOXACIN INJ 500 MG in PREMIX 1 EACH IV SCH (08:41)
[2020-06-20] MEDS: ATORVASTATIN 40 MG TABLET PO SCH (08:45)
[2020-06-20] MEDS: POTASSIUM CHLORIDE 10 MEQ TABLET PO SCH (08:45)
[2020-06-20] MEDS: HYDROmorphone 2 MG/1 ML VIAL IV PRN (12:16)
[2020-06-21] MEDS: HYDROmorphone 2 MG/1 ML VIAL IV PRN ×2 (02:56→20:28)
[2020-06-21] MEDS: CLINDAMYCIN INJ 900 MG in PREMIX 1 EACH IV SCH ×3 (05:48→20:21)
[2020-06-21] MEDS: LACTATED RINGERS 1,000 ML IV SCH (05:53)
[2020-06-21] MEDS: ENOXAPARIN 40 MG/0.4 ML SYRINGE SUBCUT SCH (08:23)
[2020-06-21] MEDS: ASPIRIN 325 MG TABLET PO SCH (08:24)
[2020-06-21] MEDS: ATORVASTATIN 40 MG TABLET PO SCH (08:24)
[2020-06-21] MEDS: LEVOFLOXACIN INJ 500 MG in PREMIX 1 EACH IV SCH (08:24)
[2020-06-21] MEDS: POTASSIUM CHLORIDE 10 MEQ TABLET PO SCH (08:24)
[2020-06-22] MEDS: HYDROmorphone 2 MG/1 ML VIAL IV PRN (00:39)
[2020-06-22] MEDS: CLINDAMYCIN INJ 900 MG in PREMIX 1 EACH IV SCH ×3 (05:19→20:07)
[2020-06-22] MEDS: LACTATED RINGERS 1,000 ML IV SCH (06:40)
[2020-06-22] MEDS: LEVOFLOXACIN INJ 500 MG in PREMIX 1 EACH IV SCH (08:20)
[2020-06-22] MEDS: ATORVASTATIN 40 MG TABLET PO SCH (08:21)
[2020-06-22] MEDS: ENOXAPARIN 40 MG/0.4 ML SYRINGE SUBCUT SCH (08:21)
[2020-06-22] MEDS: POTASSIUM CHLORIDE 10 MEQ TABLET PO SCH (08:21)
[2020-06-22] MEDS: ASPIRIN 325 MG TABLET PO SCH (08:21)
[2020-06-23] MEDS: CLINDAMYCIN INJ 900 MG in PREMIX 1 EACH IV SCH (04:05)
[2020-06-23] MEDS: LACTATED RINGERS 1,000 ML IV SCH (04:05)
[2020-06-23] MEDS: SODIUM HYPOCHLORITE 0.25% IRR 1 APPLIC in IV BAG 1 EACH IRRIG PRN (06:39)
[2020-06-23] MEDS: LEVOFLOXACIN INJ 500 MG in PREMIX 1 EACH IV SCH (08:50)
[2020-06-23] MEDS: ASPIRIN 325 MG TABLET PO SCH (08:51)
[2020-06-23] MEDS: POTASSIUM CHLORIDE 10 MEQ TABLET PO SCH (08:51)
[2020-06-23] MEDS: ENOXAPARIN 40 MG/0.4 ML SYRINGE SUBCUT SCH (08:51)
[2020-06-23] MEDS: ATORVASTATIN 40 MG TABLET PO SCH (08:51)
[2020-06-23] MEDS: CLINDAMYCIN 150 MG CAPSULE PO SCH ×2 (15:04→21:57)
[2020-06-23] MEDS: MAGNESIUM HYDROXIDE SUSP 30 ML UDCUP PO PRN (16:41)
[2020-06-24] MEDS: ATORVASTATIN 40 MG TABLET PO SCH (08:38)
[2020-06-24] MEDS: CLINDAMYCIN 150 MG CAPSULE PO SCH ×3 (08:38→21:39)
[2020-06-24] MEDS: LEVOFLOXACIN 500 MG TABLET PO SCH (08:38)
[2020-06-24] MEDS: ENOXAPARIN 40 MG/0.4 ML SYRINGE SUBCUT SCH (08:38)
[2020-06-24] MEDS: ASPIRIN 325 MG TABLET PO SCH (08:38)
[2020-06-24] MEDS: POTASSIUM CHLORIDE 10 MEQ TABLET PO SCH (08:38)
[2020-06-24] MEDS: HYDROmorphone 2 MG/1 ML VIAL IV PRN (08:42)
[2020-06-24] MEDS: COLLAGENASE OINT 30 GM TUBE TOP SCH (09:59)
[2020-06-24] MEDS: SODIUM HYPOCHLORITE 0.25% IRRIG 473 ML BOTTLE TOP SCH (10:38)
[2020-06-25] MEDS: LEVOFLOXACIN 500 MG TABLET PO SCH (09:08)
[2020-06-25] MEDS: CLINDAMYCIN 150 MG CAPSULE PO SCH ×3 (09:09→20:05)
[2020-06-25] MEDS: POTASSIUM CHLORIDE 10 MEQ TABLET PO SCH (09:09)
[2020-06-25] MEDS: ATORVASTATIN 40 MG TABLET PO SCH (09:09)
[2020-06-25] MEDS: ASPIRIN 325 MG TABLET PO SCH (09:09)
[2020-06-25] MEDS: ENOXAPARIN 40 MG/0.4 ML SYRINGE SUBCUT SCH (09:10)
[2020-06-25] MEDS: LACTATED RINGERS 1,000 ML IV SCH ×2 (09:10→20:05)
[2020-06-25] MEDS: SODIUM HYPOCHLORITE 0.25% IRRIG 473 ML BOTTLE TOP SCH (09:10)
[2020-06-25] MEDS: COLLAGENASE OINT 30 GM TUBE TOP SCH (09:11)
[2020-06-26 04:07] LABS: Basophils % 0.5 % (0.0-0.8); Eosinophils # 0.1 10*3/uL (0.0-0.87); Eosinophils % 2.2 % (0.00-10.9); Hematocrit 28.8 VOL% (42.0-52.0); Immature Granulocytes % 0.4 %; Immature Granulocytes Absolute 0.02 #; Lymphocytes # 1.3 10*3/uL (1.4-4.0); Mean Corpuscular HGB Conc 31.3 GM/DL (32-36); Mean Corpuscular Volume 80.4 FL (87-102); Mean Platelet Volume 10.1 FL (9.6-12.0); Monocytes % 11.6 % (1.7-12.7); Neutrophils % 62.3 % (38.7-73.9); Platelet Count 266 T/CUMM (130-400); Red Blood Count 3.58 MC/CUMM (3.8-5.5); Red Cell Distribution Width 17.9 % (9.3-17.3); White Blood Count 5.5 T/CUMM (4-12)
[2020-06-26 04:36] LABS: Calcium 9.5 MG/DL (8.5-10.1); Osmolality,Calculated 281.3 MOS/KG (273-304)
[2020-06-26 04:43] LABS: Eosinophils 4 % (0-10); Hypochromasia 1+; Lymphocytes 17 % (20-55); Platelet Estimate Adequate; Segmented Neutrophils 69 % (50-85); Total Cells Counted 100
[2020-06-26] MEDS ORDERED: CLINDAMYCIN INJ 900 MG in PREMIX 1 EACH IV ONE (07:00)
[2020-06-26] MEDS: ATORVASTATIN 40 MG TABLET PO SCH (08:37)
[2020-06-26] MEDS: ASPIRIN 325 MG TABLET PO SCH (08:37)
[2020-06-26] MEDS: SODIUM HYPOCHLORITE 0.25% IRRIG 473 ML BOTTLE TOP SCH (08:37)
[2020-06-26] MEDS: POTASSIUM CHLORIDE 10 MEQ TABLET PO SCH (08:37)
[2020-06-26] MEDS: LEVOFLOXACIN 500 MG TABLET PO SCH (08:37)
[2020-06-26] MEDS: ENOXAPARIN 40 MG/0.4 ML SYRINGE SUBCUT SCH (08:37)
[2020-06-26] MEDS: CLINDAMYCIN 150 MG CAPSULE PO SCH ×3 (08:37→20:51)
[2020-06-26] MEDS: COLLAGENASE OINT 30 GM TUBE TOP SCH (08:38)
[2020-06-26] MEDS: LACTATED RINGERS 1,000 ML IV SCH (08:38)
[2020-06-27] MEDS: LACTATED RINGERS 1,000 ML IV SCH ×2 (05:52→11:02)
[2020-06-27] MEDS ORDERED: CLINDAMYCIN INJ 900 MG in PREMIX 1 EACH IV ONE (07:00)
[2020-06-27] MEDS ORDERED: LIDOCAINE 2% 5 ML VIAL ONE (08:23)
[2020-06-27] MEDS ORDERED: propofoL 200 MG/20 ML VIAL IV ONE (08:23)
[2020-06-27] MEDS ORDERED: MIDAZOLAM 2 MG/2 ML VIAL ONE (08:24)
[2020-06-27] MEDS ORDERED: fentaNYL 100 MCG/2 ML VIAL ONE ×2 (08:24→10:34)
[2020-06-27] MEDS ORDERED: SUCCINYLCHOLINE 200 MG/10 ML VIAL ONE (08:57)
[2020-06-27] MEDS ORDERED: ROCURONIUM 50 MG/5 ML VIAL IV ONE ×2 (08:57→09:03)
[2020-06-27] MEDS ORDERED: ONDANSETRON 4 MG/2 ML VIAL ONE (09:53)
[2020-06-27] MEDS ORDERED: KETOROLAC 30 MG/1 ML VIAL ONE (09:53)
[2020-06-27] MEDS ORDERED: DEXAMETHASONE 4 MG/1 ML VIAL ONE (09:53)
[2020-06-27] MEDS ORDERED: GLYCOPYRROLATE 0.4 MG/2 ML VIAL ONE (09:53)
[2020-06-27] MEDS ORDERED: NEOSTIGMINE 10 MG/10 ML VIAL ONE (09:53)
[2020-06-27] MEDS ORDERED: LACTATED RINGERS 1,000 ML IV ONE (10:20)
[2020-06-27] MEDS ORDERED: SEVOFLURANE 1 UNIT/15 MINUTE INH ONE (10:34)
[2020-06-27] MEDS: SODIUM HYPOCHLORITE 0.25% IRRIG 473 ML BOTTLE TOP SCH (11:03)
[2020-06-27] MEDS: POTASSIUM CHLORIDE 10 MEQ TABLET PO SCH (11:03)
[2020-06-27] MEDS: CLINDAMYCIN 150 MG CAPSULE PO SCH ×3 (11:03→20:36)
[2020-06-27] MEDS: ASPIRIN 325 MG TABLET PO SCH (11:03)
[2020-06-27] MEDS: ATORVASTATIN 40 MG TABLET PO SCH (11:04)
[2020-06-27] MEDS: LEVOFLOXACIN 500 MG TABLET PO SCH (11:04)
[2020-06-27] MEDS: ENOXAPARIN 40 MG/0.4 ML SYRINGE SUBCUT SCH (11:04)
[2020-06-27] MEDS: COLLAGENASE OINT 30 GM TUBE TOP SCH (11:04)
[2020-06-27] MEDS ORDERED: ROPIVACAINE 0.5% 30 ML VIAL ONE (11:10)
[2020-06-27] MEDS: GABAPENTIN 100 MG CAPSULE PO SCH ×2 (15:45→20:36)
[2020-06-28] MEDS: HYDROmorphone 2 MG/1 ML VIAL IV PRN ×4 (00:46→12:13)
[2020-06-28 03:57] LABS: Basophils % 0.2 % (0.0-0.8); Hematocrit 26.6 VOL% (42.0-52.0); Hemoglobin 8.3 GM/DL (14.0-18.0); Immature Granulocytes % 0.4 %; Immature Granulocytes Absolute 0.04 #; Lymphocytes # 1.4 10*3/uL (1.4-4.0); Lymphocytes % 12.7 % (21.2-54.2); Mean Corpuscular HGB Conc 31.2 GM/DL (32-36); Mean Corpuscular Volume 79.9 FL (87-102); Mean Platelet Volume 10.6 FL (9.6-12.0); Monocytes % 10.8 % (1.7-12.7); Neutrophils % 75.9 % (38.7-73.9); Platelet Count 235 T/CUMM (130-400); Red Blood Count 3.33 MC/CUMM (3.8-5.5); Red Cell Distribution Width 17.4 % (9.3-17.3); White Blood Count 10.6 T/CUMM (4-12)
[2020-06-28] MEDS: LACTATED RINGERS 1,000 ML IV SCH (04:01)
[2020-06-28 04:13] LABS: Calcium 8.4 MG/DL (8.5-10.1); Osmolality,Calculated 282.3 MOS/KG (273-304)
[2020-06-28] MEDS: CLINDAMYCIN 150 MG CAPSULE PO SCH ×3 (08:24→21:11)
[2020-06-28] MEDS: POTASSIUM CHLORIDE 10 MEQ TABLET PO SCH (08:25)
[2020-06-28] MEDS: GABAPENTIN 100 MG CAPSULE PO SCH (08:25)
[2020-06-28] MEDS: ENOXAPARIN 40 MG/0.4 ML SYRINGE SUBCUT SCH (08:25)
[2020-06-28] MEDS: LEVOFLOXACIN 500 MG TABLET PO SCH (08:25)
[2020-06-28] MEDS: ASPIRIN 325 MG TABLET PO SCH (08:25)
[2020-06-28] MEDS: COLLAGENASE OINT 30 GM TUBE TOP SCH (08:26)
[2020-06-28] MEDS: SODIUM HYPOCHLORITE 0.25% IRRIG 473 ML BOTTLE TOP SCH (08:27)
[2020-06-28] MEDS: ATORVASTATIN 40 MG TABLET PO SCH (08:30)
[2020-06-28] MEDS: GABAPENTIN 300 MG CAPSULE PO SCH ×2 (14:06→21:11)
[2020-06-28] MEDS: KETOROLAC 10 MG TABLET PO SCH (17:59)
[2020-06-29] MEDS: KETOROLAC 10 MG TABLET PO SCH ×4 (00:23→17:52)
[2020-06-29] MEDS: LACTATED RINGERS 1,000 ML IV SCH (00:23)
[2020-06-29] MEDS: GABAPENTIN 300 MG CAPSULE PO SCH ×3 (09:04→21:31)
[2020-06-29] MEDS: ASPIRIN 325 MG TABLET PO SCH (09:04)
[2020-06-29] MEDS: POTASSIUM CHLORIDE 10 MEQ TABLET PO SCH (09:04)
[2020-06-29] MEDS: ATORVASTATIN 40 MG TABLET PO SCH (09:04)
[2020-06-29] MEDS: LEVOFLOXACIN 500 MG TABLET PO SCH (09:04)
[2020-06-29] MEDS: SODIUM HYPOCHLORITE 0.25% IRRIG 473 ML BOTTLE TOP SCH (09:04)
[2020-06-29] MEDS: CLINDAMYCIN 150 MG CAPSULE PO SCH ×3 (09:04→21:30)
[2020-06-29] MEDS: COLLAGENASE OINT 30 GM TUBE TOP SCH (09:05)
[2020-06-29] MEDS: ENOXAPARIN 40 MG/0.4 ML SYRINGE SUBCUT SCH (09:05)
[2020-06-30] MEDS: KETOROLAC 10 MG TABLET PO SCH (00:42)
[2020-06-30] MEDS: LEVOFLOXACIN 500 MG TABLET PO SCH (09:01)
[2020-06-30] MEDS: CLINDAMYCIN 150 MG CAPSULE PO SCH (09:01)
[2020-06-30] MEDS: ASPIRIN 325 MG TABLET PO SCH (09:02)
[2020-06-30] MEDS: ENOXAPARIN 40 MG/0.4 ML SYRINGE SUBCUT SCH (09:02)
[2020-06-30] MEDS: POTASSIUM CHLORIDE 10 MEQ TABLET PO SCH (09:02)
[2020-06-30] MEDS: GABAPENTIN 300 MG CAPSULE PO SCH ×3 (09:02→20:54)
[2020-06-30] MEDS: ATORVASTATIN 40 MG TABLET PO SCH (09:02)
[2020-06-30] MEDS: COLLAGENASE OINT 30 GM TUBE TOP SCH (10:06)
[2020-06-30] MEDS: SODIUM HYPOCHLORITE 0.25% IRRIG 473 ML BOTTLE TOP SCH (10:06)
[2020-06-30] MEDS: MAGNESIUM HYDROXIDE SUSP 30 ML UDCUP PO PRN (15:26)
[2020-07-01 04:36] VITALS: BP 132/83
[2020-07-01] MEDS: COLLAGENASE OINT 30 GM TUBE TOP SCH (08:33)
[2020-07-01] MEDS: ENOXAPARIN 40 MG/0.4 ML SYRINGE SUBCUT SCH (08:33)
[2020-07-01] MEDS: ASPIRIN 325 MG TABLET PO SCH (08:33)
[2020-07-01] MEDS: SODIUM HYPOCHLORITE 0.25% IRRIG 473 ML BOTTLE TOP SCH (08:33)
[2020-07-01] MEDS: GABAPENTIN 300 MG CAPSULE PO SCH (08:33)
[2020-07-01] MEDS: POTASSIUM CHLORIDE 10 MEQ TABLET PO SCH (08:33)
[2020-07-01] MEDS: ATORVASTATIN 40 MG TABLET PO SCH (08:33)
== END 2020-07-01 11:41 | disposition home health service (06) | DRG 475 ==
LOC: N.OR 06:15 → N.SDSINP 06:17 → N.5E 13:34
PROVIDERS: ADMIT Surgery; ATTEND Surgery

== ENCOUNTER 2020-07-24 09:14 | Inpatient (IN) ==
[2020-07-24] MEDS ORDERED: PROMETHAZINE 25 MG/1 ML VIAL IM PRN (10:00)
[2020-07-24] MEDS ORDERED: VANCOMYCIN INJ 1,000 MG in SODIUM CHLORIDE 0.9% 500 ML IV SCH (10:00)
[2020-07-24] MEDS ORDERED: ONDANSETRON 4 MG/2 ML VIAL IV PRN (10:00)
[2020-07-24 10:36] LABS: Basophils % 0.4 % (0.0-0.8); Eosinophils # 0.2 10*3/uL (0.0-0.87); Eosinophils % 2.1 % (0.00-10.9); Hematocrit 33.2 VOL% (42.0-52.0); Hemoglobin 10.2 GM/DL (14.0-18.0); Immature Granulocytes % 0.4 %; Immature Granulocytes Absolute 0.03 #; Lymphocytes # 1.4 10*3/uL (1.4-4.0); Lymphocytes % 19.6 % (21.2-54.2); Mean Corpuscular HGB Conc 30.7 GM/DL (32-36); Mean Corpuscular Volume 81.4 FL (87-102); Mean Platelet Volume 9.5 FL (9.6-12.0); Monocytes % 10.1 % (1.7-12.7); Neutrophils % 67.4 % (38.7-73.9); Platelet Count 278 T/CUMM (130-400); Red Blood Count 4.08 MC/CUMM (3.8-5.5); Red Cell Distribution Width 18.8 % (9.3-17.3)
[2020-07-24 11:07] LABS: Calcium 9.7 MG/DL (8.5-10.1); Osmolality,Calculated 275.7 MOS/KG (273-304); Potassium 3.7 MMOL/L (3.5-5.1)
[2020-07-24] MEDS: LACTATED RINGERS 1,000 ML IV SCH (11:54)
[2020-07-24] MEDS: PIPERACILLIN/TAZOBACTAM 3,375 MG in SODIUM CHLORIDE 0.9% 100 ML IV SCH ×2 (11:54→20:45)
[2020-07-24] MEDS: PANTOPRAZOLE 40 MG TABLET PO SCH (11:55)
[2020-07-24] MEDS: MORPHINE 4 MG/1 ML VIAL IV PRN (14:07)
[2020-07-24] MEDS: VANCOMYCIN INJ 1,250 MG in SODIUM CHLORIDE 0.9% 250 ML IV SCH (16:51)
[2020-07-25] MEDS: VANCOMYCIN INJ 1,250 MG in SODIUM CHLORIDE 0.9% 250 ML IV SCH ×2 (03:56→15:35)
[2020-07-25] MEDS: ENOXAPARIN 40 MG/0.4 ML SYRINGE SUBCUT SCH (05:17)
[2020-07-25] MEDS: LACTATED RINGERS 1,000 ML IV SCH ×2 (05:36→15:35)
[2020-07-25] MEDS: PIPERACILLIN/TAZOBACTAM 3,375 MG in SODIUM CHLORIDE 0.9% 100 ML IV SCH ×3 (05:37→20:20)
[2020-07-25] MEDS: PANTOPRAZOLE 40 MG TABLET PO SCH (08:47)
[2020-07-25] MEDS ORDERED: fentaNYL 100 MCG/2 ML VIAL ONE (13:55)
[2020-07-25] MEDS ORDERED: LIDOCAINE 2% 5 ML VIAL ONE (14:09)
[2020-07-25] MEDS ORDERED: propofoL 200 MG/20 ML VIAL IV ONE (14:09)
[2020-07-25] MEDS ORDERED: SEVOFLURANE 1 UNIT/15 MINUTE INH ONE (14:23)
[2020-07-25] MEDS ORDERED: ONDANSETRON 4 MG/2 ML VIAL IV PRN (14:48)
[2020-07-25] MEDS ORDERED: MORPHINE 10 MG/1 ML VIAL ONE (14:49)
[2020-07-25] MEDS: MORPHINE 10 MG/1 ML VIAL IV PRN ×3 (14:50→15:10)
[2020-07-25] MEDS: GABAPENTIN 300 MG CAPSULE PO SCH ×2 (15:35→20:21)
[2020-07-25] MEDS: MORPHINE 4 MG/1 ML VIAL IV PRN (18:25)
[2020-07-26] MEDS: VANCOMYCIN INJ 1,250 MG in SODIUM CHLORIDE 0.9% 250 ML IV SCH ×2 (03:10→17:12)
[2020-07-26] MEDS: ENOXAPARIN 40 MG/0.4 ML SYRINGE SUBCUT SCH (03:10)
[2020-07-26] MEDS: PIPERACILLIN/TAZOBACTAM 3,375 MG in SODIUM CHLORIDE 0.9% 100 ML IV SCH ×3 (05:10→21:12)
[2020-07-26] MEDS: LACTATED RINGERS 1,000 ML IV SCH ×2 (07:18→13:34)
[2020-07-26] MEDS: PANTOPRAZOLE 40 MG TABLET PO SCH (09:03)
[2020-07-26] MEDS: ATORVASTATIN 40 MG TABLET PO SCH (09:03)
[2020-07-26] MEDS: GABAPENTIN 300 MG CAPSULE PO SCH ×3 (09:03→21:11)
[2020-07-26] MEDS: ASPIRIN 325 MG TABLET PO SCH (09:03)
[2020-07-26] MEDS ORDERED: HYDROmorphone 2 MG/1 ML VIAL IV ONE (12:03)
[2020-07-26] MEDS: oxyCODONE/ACETAMINOPHEN 5-325 MG TABLET PO PRN ×2 (15:52→22:38)
[2020-07-27] MEDS: VANCOMYCIN INJ 1,250 MG in SODIUM CHLORIDE 0.9% 250 ML IV SCH ×2 (03:25→18:12)
[2020-07-27] MEDS: ENOXAPARIN 40 MG/0.4 ML SYRINGE SUBCUT SCH (04:53)
[2020-07-27] MEDS: PIPERACILLIN/TAZOBACTAM 3,375 MG in SODIUM CHLORIDE 0.9% 100 ML IV SCH ×3 (05:12→20:39)
[2020-07-27] MEDS: LACTATED RINGERS 1,000 ML IV SCH ×2 (07:16→07:17)
[2020-07-27] MEDS: MORPHINE 4 MG/1 ML VIAL IV PRN (08:20)
[2020-07-27] MEDS: ASPIRIN 325 MG TABLET PO SCH (10:09)
[2020-07-27] MEDS: PANTOPRAZOLE 40 MG TABLET PO SCH (10:10)
[2020-07-27] MEDS: oxyCODONE/ACETAMINOPHEN 5-325 MG TABLET PO PRN ×2 (10:10→20:38)
[2020-07-27] MEDS: GABAPENTIN 300 MG CAPSULE PO SCH ×3 (10:10→20:38)
[2020-07-27] MEDS: ATORVASTATIN 40 MG TABLET PO SCH (10:10)
[2020-07-27] MEDS: hydroCHLOROthiazide 12.5 MG CAPSULE PO SCH (10:10)
[2020-07-27] MEDS: LOSARTAN 50 MG TABLET PO SCH (14:24)
[2020-07-28] MEDS: VANCOMYCIN INJ 1,250 MG in SODIUM CHLORIDE 0.9% 250 ML IV SCH ×2 (03:09→17:39)
[2020-07-28] MEDS: ENOXAPARIN 40 MG/0.4 ML SYRINGE SUBCUT SCH (04:57)
[2020-07-28] MEDS: PIPERACILLIN/TAZOBACTAM 3,375 MG in SODIUM CHLORIDE 0.9% 100 ML IV SCH ×3 (04:57→20:45)
[2020-07-28] MEDS: oxyCODONE/ACETAMINOPHEN 5-325 MG TABLET PO PRN ×3 (04:57→19:25)
[2020-07-28] MEDS: PANTOPRAZOLE 40 MG TABLET PO SCH (09:14)
[2020-07-28] MEDS: LOSARTAN 50 MG TABLET PO SCH (09:14)
[2020-07-28] MEDS: ASPIRIN 325 MG TABLET PO SCH (09:14)
[2020-07-28] MEDS: hydroCHLOROthiazide 12.5 MG CAPSULE PO SCH (09:14)
[2020-07-28] MEDS: GABAPENTIN 300 MG CAPSULE PO SCH ×3 (09:15→20:45)
[2020-07-28] MEDS: ATORVASTATIN 40 MG TABLET PO SCH (09:15)
[2020-07-28] MEDS ORDERED: SODIUM HYPOCHLORITE 0.25% IRR 1 APPLIC in IV BAG 1 EACH IRRIG PRN (11:47)
[2020-07-29] MEDS: VANCOMYCIN INJ 1,250 MG in SODIUM CHLORIDE 0.9% 250 ML IV SCH ×2 (03:15→17:37)
[2020-07-29] MEDS: oxyCODONE/ACETAMINOPHEN 5-325 MG TABLET PO PRN ×3 (03:48→20:58)
[2020-07-29] MEDS: ENOXAPARIN 40 MG/0.4 ML SYRINGE SUBCUT SCH (03:51)
[2020-07-29] MEDS: PIPERACILLIN/TAZOBACTAM 3,375 MG in SODIUM CHLORIDE 0.9% 100 ML IV SCH ×3 (04:45→20:13)
[2020-07-29 07:26] LABS: Calcium 9.4 MG/DL (8.5-10.1); Osmolality,Calculated 282.1 MOS/KG (273-304); Potassium 3.5 MMOL/L (3.5-5.1)
[2020-07-29] MEDS: ATORVASTATIN 40 MG TABLET PO SCH (09:14)
[2020-07-29] MEDS: GABAPENTIN 300 MG CAPSULE PO SCH ×3 (09:14→20:15)
[2020-07-29] MEDS: PANTOPRAZOLE 40 MG TABLET PO SCH (09:14)
[2020-07-29] MEDS: ASPIRIN 325 MG TABLET PO SCH (09:14)
[2020-07-29] MEDS: hydroCHLOROthiazide 12.5 MG CAPSULE PO SCH (09:14)
[2020-07-29] MEDS: LOSARTAN 50 MG TABLET PO SCH (10:41)
[2020-07-30] MEDS: oxyCODONE/ACETAMINOPHEN 5-325 MG TABLET PO PRN ×3 (02:30→20:29)
[2020-07-30] MEDS: VANCOMYCIN INJ 1,250 MG in SODIUM CHLORIDE 0.9% 250 ML IV SCH ×2 (04:10→17:33)
[2020-07-30] MEDS: PIPERACILLIN/TAZOBACTAM 3,375 MG in SODIUM CHLORIDE 0.9% 100 ML IV SCH ×3 (04:47→20:28)
[2020-07-30] MEDS: ENOXAPARIN 40 MG/0.4 ML SYRINGE SUBCUT SCH (04:52)
[2020-07-30] MEDS: hydroCHLOROthiazide 12.5 MG CAPSULE PO SCH (09:19)
[2020-07-30] MEDS: LOSARTAN 50 MG TABLET PO SCH (09:19)
[2020-07-30] MEDS: ATORVASTATIN 40 MG TABLET PO SCH (09:19)
[2020-07-30] MEDS: PANTOPRAZOLE 40 MG TABLET PO SCH (09:19)
[2020-07-30] MEDS: ASPIRIN 325 MG TABLET PO SCH (09:19)
[2020-07-30] MEDS: GABAPENTIN 300 MG CAPSULE PO SCH ×3 (09:50→20:29)
[2020-07-31] MEDS: oxyCODONE/ACETAMINOPHEN 5-325 MG TABLET PO PRN ×2 (02:15→22:09)
[2020-07-31] MEDS: VANCOMYCIN INJ 1,250 MG in SODIUM CHLORIDE 0.9% 250 ML IV SCH (03:06)
[2020-07-31] MEDS: ENOXAPARIN 40 MG/0.4 ML SYRINGE SUBCUT SCH (04:25)
[2020-07-31] MEDS: PIPERACILLIN/TAZOBACTAM 3,375 MG in SODIUM CHLORIDE 0.9% 100 ML IV SCH (04:26)
[2020-07-31] MEDS: MORPHINE 4 MG/1 ML VIAL IV PRN ×2 (07:53→17:07)
[2020-07-31] MEDS ORDERED: TUBERCULIN SKIN TEST 0.1 ML SYRINGE INTRADERM ONE (09:29)
[2020-07-31] MEDS ORDERED: MORPHINE 4 MG/1 ML VIAL IV ONE (11:09)
[2020-07-31] MEDS: ASPIRIN 325 MG TABLET PO SCH (11:35)
[2020-07-31] MEDS: GABAPENTIN 300 MG CAPSULE PO SCH ×3 (11:35→22:05)
[2020-07-31] MEDS: hydroCHLOROthiazide 12.5 MG CAPSULE PO SCH (11:35)
[2020-07-31] MEDS: ATORVASTATIN 40 MG TABLET PO SCH (11:35)
[2020-07-31] MEDS: PANTOPRAZOLE 40 MG TABLET PO SCH (11:36)
[2020-07-31] MEDS: LOSARTAN 50 MG TABLET PO SCH (11:36)
[2020-08-01] MEDS: MORPHINE 4 MG/1 ML VIAL IV PRN ×2 (02:27→21:40)
[2020-08-01] MEDS: ENOXAPARIN 40 MG/0.4 ML SYRINGE SUBCUT SCH (05:57)
[2020-08-01] MEDS: GABAPENTIN 300 MG CAPSULE PO SCH ×3 (09:03→20:48)
[2020-08-01] MEDS: PANTOPRAZOLE 40 MG TABLET PO SCH (09:03)
[2020-08-01] MEDS: oxyCODONE/ACETAMINOPHEN 5-325 MG TABLET PO PRN ×2 (09:03→17:16)
[2020-08-01] MEDS: ASPIRIN 325 MG TABLET PO SCH (09:03)
[2020-08-01] MEDS: LOSARTAN 50 MG TABLET PO SCH (09:03)
[2020-08-01] MEDS: ATORVASTATIN 40 MG TABLET PO SCH (09:03)
[2020-08-01] MEDS: hydroCHLOROthiazide 12.5 MG CAPSULE PO SCH (09:03)
[2020-08-02] MEDS: oxyCODONE/ACETAMINOPHEN 5-325 MG TABLET PO PRN ×3 (00:41→18:04)
[2020-08-02] MEDS: ENOXAPARIN 40 MG/0.4 ML SYRINGE SUBCUT SCH (05:26)
[2020-08-02] MEDS: GABAPENTIN 300 MG CAPSULE PO SCH ×3 (08:28→20:49)
[2020-08-02] MEDS: ASPIRIN 325 MG TABLET PO SCH (08:28)
[2020-08-02] MEDS: ATORVASTATIN 40 MG TABLET PO SCH (08:28)
[2020-08-02] MEDS: LOSARTAN 50 MG TABLET PO SCH (08:28)
[2020-08-02] MEDS: PANTOPRAZOLE 40 MG TABLET PO SCH (08:28)
[2020-08-02] MEDS: hydroCHLOROthiazide 12.5 MG CAPSULE PO SCH (08:28)
[2020-08-02] MEDS: MORPHINE 4 MG/1 ML VIAL IV PRN (23:16)
[2020-08-03] MEDS: oxyCODONE/ACETAMINOPHEN 5-325 MG TABLET PO PRN ×3 (03:45→20:10)
[2020-08-03] MEDS: ENOXAPARIN 40 MG/0.4 ML SYRINGE SUBCUT SCH (03:46)
[2020-08-03] MEDS: PANTOPRAZOLE 40 MG TABLET PO SCH (08:12)
[2020-08-03] MEDS: hydroCHLOROthiazide 12.5 MG CAPSULE PO SCH (08:15)
[2020-08-03] MEDS: LOSARTAN 50 MG TABLET PO SCH (08:15)
[2020-08-03] MEDS: ASPIRIN 325 MG TABLET PO SCH (08:15)
[2020-08-03] MEDS: GABAPENTIN 300 MG CAPSULE PO SCH ×3 (08:15→20:10)
[2020-08-03] MEDS: ATORVASTATIN 40 MG TABLET PO SCH (08:15)
[2020-08-03] MEDS ORDERED: MAGNESIUM HYDROXIDE SUSP 30 ML UDCUP PO ONE (14:26)
[2020-08-04] MEDS: ENOXAPARIN 40 MG/0.4 ML SYRINGE SUBCUT SCH (04:37)
[2020-08-04] MEDS: oxyCODONE/ACETAMINOPHEN 5-325 MG TABLET PO PRN ×3 (06:20→20:32)
[2020-08-04] MEDS: GABAPENTIN 300 MG CAPSULE PO SCH ×3 (10:02→20:32)
[2020-08-04] MEDS: hydroCHLOROthiazide 12.5 MG CAPSULE PO SCH (10:02)
[2020-08-04] MEDS: LOSARTAN 50 MG TABLET PO SCH (10:02)
[2020-08-04] MEDS: ASPIRIN 325 MG TABLET PO SCH (10:02)
[2020-08-04] MEDS: PANTOPRAZOLE 40 MG TABLET PO SCH (10:02)
[2020-08-04] MEDS: ATORVASTATIN 40 MG TABLET PO SCH (10:03)
[2020-08-04] MEDS: MORPHINE 4 MG/1 ML VIAL IV PRN (11:17)
[2020-08-05] MEDS: oxyCODONE/ACETAMINOPHEN 5-325 MG TABLET PO PRN ×3 (03:42→20:14)
[2020-08-05] MEDS: ENOXAPARIN 40 MG/0.4 ML SYRINGE SUBCUT SCH (03:42)
[2020-08-05 06:12] LABS: Basophils # 0.1 10*3/uL (0.0-0.2); Basophils % 0.8 % (0.0-0.8); Eosinophils # 0.2 10*3/uL (0.0-0.87); Eosinophils % 3.9 % (0.00-10.9); Hemoglobin 10.2 GM/DL (14.0-18.0); Immature Granulocytes % 0.5 %; Immature Granulocytes Absolute 0.03 #; Lymphocytes # 1.5 10*3/uL (1.4-4.0); Lymphocytes % 23.4 % (21.2-54.2); Mean Corpuscular HGB Conc 30.9 GM/DL (32-36); Mean Corpuscular Volume 80.3 FL (87-102); Mean Platelet Volume 10.5 FL (9.6-12.0); Monocytes % 11.5 % (1.7-12.7); Neutrophils % 59.9 % (38.7-73.9); Platelet Count 328 T/CUMM (130-400); Red Blood Count 4.11 MC/CUMM (3.8-5.5); Red Cell Distribution Width 17.4 % (9.3-17.3); White Blood Count 6.2 T/CUMM (4-12)
[2020-08-05] MEDS: GABAPENTIN 300 MG CAPSULE PO SCH ×3 (09:31→20:14)
[2020-08-05] MEDS: hydroCHLOROthiazide 12.5 MG CAPSULE PO SCH (09:31)
[2020-08-05] MEDS: ASPIRIN 325 MG TABLET PO SCH (09:31)
[2020-08-05] MEDS: ATORVASTATIN 40 MG TABLET PO SCH (09:32)
[2020-08-05] MEDS: PANTOPRAZOLE 40 MG TABLET PO SCH (09:32)
[2020-08-05] MEDS: LOSARTAN 50 MG TABLET PO SCH (09:32)
[2020-08-06] MEDS: oxyCODONE/ACETAMINOPHEN 5-325 MG TABLET PO PRN ×3 (02:08→19:02)
[2020-08-06] MEDS: ENOXAPARIN 40 MG/0.4 ML SYRINGE SUBCUT SCH (04:27)
[2020-08-06] MEDS: ASPIRIN 325 MG TABLET PO SCH (08:43)
[2020-08-06] MEDS: LOSARTAN 50 MG TABLET PO SCH (08:44)
[2020-08-06] MEDS: hydroCHLOROthiazide 12.5 MG CAPSULE PO SCH (08:44)
[2020-08-06] MEDS: PANTOPRAZOLE 40 MG TABLET PO SCH (08:44)
[2020-08-06] MEDS: GABAPENTIN 300 MG CAPSULE PO SCH ×3 (08:45→20:52)
[2020-08-06] MEDS: ATORVASTATIN 40 MG TABLET PO SCH (08:45)
[2020-08-07] MEDS: oxyCODONE/ACETAMINOPHEN 5-325 MG TABLET PO PRN ×4 (01:49→21:27)
[2020-08-07] MEDS: ENOXAPARIN 40 MG/0.4 ML SYRINGE SUBCUT SCH (03:36)
[2020-08-07] MEDS: ASPIRIN 325 MG TABLET PO SCH (08:32)
[2020-08-07] MEDS: ATORVASTATIN 40 MG TABLET PO SCH (08:32)
[2020-08-07] MEDS: PANTOPRAZOLE 40 MG TABLET PO SCH (08:32)
[2020-08-07] MEDS: hydroCHLOROthiazide 12.5 MG CAPSULE PO SCH (08:32)
[2020-08-07] MEDS: GABAPENTIN 300 MG CAPSULE PO SCH ×3 (08:32→21:27)
[2020-08-07] MEDS: LOSARTAN 50 MG TABLET PO SCH (08:33)
[2020-08-08] MEDS: ENOXAPARIN 40 MG/0.4 ML SYRINGE SUBCUT SCH (04:01)
[2020-08-08] MEDS: oxyCODONE/ACETAMINOPHEN 5-325 MG TABLET PO PRN ×3 (04:01→17:41)
[2020-08-08] MEDS: PANTOPRAZOLE 40 MG TABLET PO SCH (11:14)
[2020-08-08] MEDS: ASPIRIN 325 MG TABLET PO SCH (11:14)
[2020-08-08] MEDS: LOSARTAN 50 MG TABLET PO SCH (11:14)
[2020-08-08] MEDS: ATORVASTATIN 40 MG TABLET PO SCH (11:14)
[2020-08-08] MEDS: hydroCHLOROthiazide 12.5 MG CAPSULE PO SCH (11:14)
[2020-08-08] MEDS: GABAPENTIN 300 MG CAPSULE PO SCH ×3 (11:14→20:48)
[2020-08-09] MEDS: ENOXAPARIN 40 MG/0.4 ML SYRINGE SUBCUT SCH (04:06)
[2020-08-09] MEDS: oxyCODONE/ACETAMINOPHEN 5-325 MG TABLET PO PRN ×3 (04:07→17:39)
[2020-08-09] MEDS: PANTOPRAZOLE 40 MG TABLET PO SCH (09:15)
[2020-08-09] MEDS: hydroCHLOROthiazide 12.5 MG CAPSULE PO SCH (09:15)
[2020-08-09] MEDS: ASPIRIN 325 MG TABLET PO SCH (09:15)
[2020-08-09] MEDS: LOSARTAN 50 MG TABLET PO SCH (09:15)
[2020-08-09] MEDS: GABAPENTIN 300 MG CAPSULE PO SCH ×3 (09:15→20:38)
[2020-08-09] MEDS: ATORVASTATIN 40 MG TABLET PO SCH (09:15)
[2020-08-10] MEDS: oxyCODONE/ACETAMINOPHEN 5-325 MG TABLET PO PRN ×4 (00:22→23:52)
[2020-08-10] MEDS: ENOXAPARIN 40 MG/0.4 ML SYRINGE SUBCUT SCH (04:10)
[2020-08-10] MEDS: GABAPENTIN 300 MG CAPSULE PO SCH ×3 (09:03→20:48)
[2020-08-10] MEDS: ASPIRIN 325 MG TABLET PO SCH (09:03)
[2020-08-10] MEDS: ATORVASTATIN 40 MG TABLET PO SCH (09:03)
[2020-08-10] MEDS: LOSARTAN 50 MG TABLET PO SCH (09:03)
[2020-08-10] MEDS: PANTOPRAZOLE 40 MG TABLET PO SCH (09:03)
[2020-08-10] MEDS: hydroCHLOROthiazide 12.5 MG CAPSULE PO SCH (09:03)
[2020-08-10] MEDS ORDERED: ceFAZolin 2,000 MG in PREMIX 1 EACH IV ONE (12:52)
[2020-08-11] MEDS: ENOXAPARIN 40 MG/0.4 ML SYRINGE SUBCUT SCH (03:58)
[2020-08-11] MEDS ORDERED: ceFAZolin 2,000 MG in PREMIX 1 EACH IV ONE (07:45)
[2020-08-11] MEDS ORDERED: propofoL 200 MG/20 ML VIAL IV ONE (08:01)
[2020-08-11] MEDS ORDERED: fentaNYL 100 MCG/2 ML VIAL ONE (08:01)
[2020-08-11] MEDS ORDERED: LIDOCAINE 2% 5 ML VIAL ONE (08:01)
[2020-08-11 08:04] LABS: Hematocrit 34.4 VOL% (42.0-52.0); Hemoglobin 10.4 GM/DL (14.0-18.0)
[2020-08-11 08:29] LABS: Calcium 9.9 MG/DL (8.5-10.1); Osmolality,Calculated 279.5 MOS/KG (273-304); Potassium 4.3 MMOL/L (3.5-5.1)
[2020-08-11] MEDS ORDERED: PHENYLEPHRINE 1 MG/10 ML SYRINGE IV ONE (08:40)
[2020-08-11] MEDS ORDERED: SEVOFLURANE 1 UNIT/15 MINUTE INH ONE (08:41)
[2020-08-11] MEDS ORDERED: ONDANSETRON 4 MG/2 ML VIAL IV PRN (09:02)
[2020-08-11] MEDS ORDERED: HYDROmorphone 2 MG/1 ML VIAL IV PRN (09:02)
[2020-08-11] MEDS ORDERED: HYDROmorphone 2 MG/1 ML VIAL ONE (09:06)
[2020-08-11] MEDS: ASPIRIN 325 MG TABLET PO SCH (10:07)
[2020-08-11] MEDS: PANTOPRAZOLE 40 MG TABLET PO SCH (10:08)
[2020-08-11] MEDS: LOSARTAN 50 MG TABLET PO SCH (10:08)
[2020-08-11] MEDS: GABAPENTIN 300 MG CAPSULE PO SCH ×3 (10:08→21:06)
[2020-08-11] MEDS: hydroCHLOROthiazide 12.5 MG CAPSULE PO SCH (10:08)
[2020-08-11] MEDS: ATORVASTATIN 40 MG TABLET PO SCH (10:10)
[2020-08-11] MEDS: oxyCODONE/ACETAMINOPHEN 5-325 MG TABLET PO PRN ×2 (12:56→19:03)
[2020-08-11] MEDS: ACETAMINOPHEN 325 MG TABLET PO PRN (23:47)
[2020-08-12] MEDS: oxyCODONE/ACETAMINOPHEN 5-325 MG TABLET PO PRN ×4 (01:11→20:31)
[2020-08-12] MEDS: ENOXAPARIN 40 MG/0.4 ML SYRINGE SUBCUT SCH (03:42)
[2020-08-12] MEDS: PANTOPRAZOLE 40 MG TABLET PO SCH (10:01)
[2020-08-12] MEDS: LOSARTAN 50 MG TABLET PO SCH (10:01)
[2020-08-12] MEDS: ATORVASTATIN 40 MG TABLET PO SCH (10:01)
[2020-08-12] MEDS: GABAPENTIN 300 MG CAPSULE PO SCH ×3 (10:01→20:31)
[2020-08-12] MEDS: ASPIRIN 325 MG TABLET PO SCH (10:01)
[2020-08-12] MEDS: hydroCHLOROthiazide 12.5 MG CAPSULE PO SCH (10:01)
[2020-08-13] MEDS: ENOXAPARIN 40 MG/0.4 ML SYRINGE SUBCUT SCH (03:03)
[2020-08-13] MEDS: oxyCODONE/ACETAMINOPHEN 5-325 MG TABLET PO PRN ×4 (03:03→23:23)
[2020-08-13] MEDS: hydroCHLOROthiazide 12.5 MG CAPSULE PO SCH (09:42)
[2020-08-13] MEDS: ASPIRIN 325 MG TABLET PO SCH (09:42)
[2020-08-13] MEDS: LOSARTAN 50 MG TABLET PO SCH (09:42)
[2020-08-13] MEDS: ATORVASTATIN 40 MG TABLET PO SCH (09:42)
[2020-08-13] MEDS: GABAPENTIN 300 MG CAPSULE PO SCH ×3 (09:42→21:11)
[2020-08-13] MEDS: PANTOPRAZOLE 40 MG TABLET PO SCH (09:42)
[2020-08-14] MEDS: ENOXAPARIN 40 MG/0.4 ML SYRINGE SUBCUT SCH (03:07)
[2020-08-14] MEDS: oxyCODONE/ACETAMINOPHEN 5-325 MG TABLET PO PRN ×3 (06:42→20:50)
[2020-08-14] MEDS: GABAPENTIN 300 MG CAPSULE PO SCH ×3 (09:49→20:51)
[2020-08-14] MEDS: ASPIRIN 325 MG TABLET PO SCH (09:49)
[2020-08-14] MEDS: hydroCHLOROthiazide 12.5 MG CAPSULE PO SCH (09:50)
[2020-08-14] MEDS: ATORVASTATIN 40 MG TABLET PO SCH (09:50)
[2020-08-14] MEDS: PANTOPRAZOLE 40 MG TABLET PO SCH (09:50)
[2020-08-14] MEDS: LOSARTAN 50 MG TABLET PO SCH (09:50)
[2020-08-15] MEDS: oxyCODONE/ACETAMINOPHEN 5-325 MG TABLET PO PRN ×4 (03:08→21:36)
[2020-08-15] MEDS: ENOXAPARIN 40 MG/0.4 ML SYRINGE SUBCUT SCH (03:09)
[2020-08-15] MEDS: ASPIRIN 325 MG TABLET PO SCH (08:40)
[2020-08-15] MEDS: hydroCHLOROthiazide 12.5 MG CAPSULE PO SCH (08:40)
[2020-08-15] MEDS: GABAPENTIN 300 MG CAPSULE PO SCH ×3 (08:40→21:35)
[2020-08-15] MEDS: PANTOPRAZOLE 40 MG TABLET PO SCH (08:41)
[2020-08-15] MEDS: LOSARTAN 50 MG TABLET PO SCH (08:41)
[2020-08-15] MEDS: ATORVASTATIN 40 MG TABLET PO SCH (09:15)
[2020-08-16] MEDS: ENOXAPARIN 40 MG/0.4 ML SYRINGE SUBCUT SCH (03:50)
[2020-08-16] MEDS: oxyCODONE/ACETAMINOPHEN 5-325 MG TABLET PO PRN ×3 (05:11→22:31)
[2020-08-16] MEDS: PANTOPRAZOLE 40 MG TABLET PO SCH (08:24)
[2020-08-16] MEDS: ATORVASTATIN 40 MG TABLET PO SCH (08:24)
[2020-08-16] MEDS: GABAPENTIN 300 MG CAPSULE PO SCH ×3 (08:24→20:39)
[2020-08-16] MEDS: hydroCHLOROthiazide 12.5 MG CAPSULE PO SCH (08:24)
[2020-08-16] MEDS: ASPIRIN 325 MG TABLET PO SCH (08:24)
[2020-08-16] MEDS: LOSARTAN 50 MG TABLET PO SCH (08:24)
[2020-08-17] MEDS: ENOXAPARIN 40 MG/0.4 ML SYRINGE SUBCUT SCH (03:46)
[2020-08-17] MEDS: oxyCODONE/ACETAMINOPHEN 5-325 MG TABLET PO PRN ×2 (05:48→14:33)
[2020-08-17] MEDS: LOSARTAN 50 MG TABLET PO SCH (09:24)
[2020-08-17] MEDS: GABAPENTIN 300 MG CAPSULE PO SCH ×3 (09:24→20:12)
[2020-08-17] MEDS: PANTOPRAZOLE 40 MG TABLET PO SCH (09:24)
[2020-08-17] MEDS: hydroCHLOROthiazide 12.5 MG CAPSULE PO SCH (09:24)
[2020-08-17] MEDS: ATORVASTATIN 40 MG TABLET PO SCH (09:24)
[2020-08-17] MEDS: ASPIRIN 325 MG TABLET PO SCH (09:24)
[2020-08-17] MEDS ORDERED: ceFAZolin 1,000 MG in SYRINGE 1 EACH IV ONE (10:09)
[2020-08-17] MEDS ORDERED: MAGNESIUM HYDROXIDE SUSP 30 ML UDCUP PO PRN (10:51)
[2020-08-18] MEDS: ENOXAPARIN 40 MG/0.4 ML SYRINGE SUBCUT SCH (04:14)
[2020-08-18] MEDS: oxyCODONE/ACETAMINOPHEN 5-325 MG TABLET PO PRN ×3 (04:55→22:09)
[2020-08-18] MEDS ORDERED: EPINEPHrine 1 MG/ML VIAL ONE (06:48)
[2020-08-18] MEDS: LOSARTAN 50 MG TABLET PO SCH (08:16)
[2020-08-18] MEDS ORDERED: propofoL 200 MG/20 ML VIAL IV ONE (09:00)
[2020-08-18] MEDS ORDERED: LIDOCAINE 2% 5 ML VIAL ONE (09:00)
[2020-08-18] MEDS ORDERED: MIDAZOLAM 2 MG/2 ML VIAL ONE (09:00)
[2020-08-18] MEDS ORDERED: fentaNYL 100 MCG/2 ML VIAL ONE (09:00)
[2020-08-18] MEDS ORDERED: LACTATED RINGERS 1,000 ML IV ONE (09:01)
[2020-08-18] MEDS ORDERED: PHENYLEPHRINE 10 MG/1 ML VIAL IV ONE ×2 (09:09→09:11)
[2020-08-18] MEDS ORDERED: ceFAZolin 1,000 MG VIAL ONE (09:11)
[2020-08-18] MEDS ORDERED: SODIUM CHLORIDE 0.9% 100 ML IV ONE (09:11)
[2020-08-18] MEDS ORDERED: SEVOFLURANE 1 UNIT/15 MINUTE INH ONE (09:41)
[2020-08-18] MEDS ORDERED: ONDANSETRON 4 MG/2 ML VIAL IV PRN (10:07)
[2020-08-18] MEDS ORDERED: HYDROmorphone 2 MG/1 ML VIAL IV PRN (10:07)
[2020-08-18] MEDS: ASPIRIN 325 MG TABLET PO SCH (11:10)
[2020-08-18] MEDS: ATORVASTATIN 40 MG TABLET PO SCH (11:10)
[2020-08-18] MEDS: PANTOPRAZOLE 40 MG TABLET PO SCH (11:11)
[2020-08-18] MEDS: GABAPENTIN 300 MG CAPSULE PO SCH ×3 (11:11→20:23)
[2020-08-18] MEDS: hydroCHLOROthiazide 12.5 MG CAPSULE PO SCH (19:35)
[2020-08-19] MEDS: ENOXAPARIN 40 MG/0.4 ML SYRINGE SUBCUT SCH (03:47)
[2020-08-19] MEDS: ASPIRIN 325 MG TABLET PO SCH (09:35)
[2020-08-19] MEDS: ATORVASTATIN 40 MG TABLET PO SCH (09:35)
[2020-08-19] MEDS: GABAPENTIN 300 MG CAPSULE PO SCH ×3 (09:35→20:48)
[2020-08-19] MEDS: PANTOPRAZOLE 40 MG TABLET PO SCH (09:35)
[2020-08-19] MEDS: LOSARTAN 50 MG TABLET PO SCH (09:35)
[2020-08-19] MEDS: oxyCODONE/ACETAMINOPHEN 5-325 MG TABLET PO PRN (14:39)
[2020-08-19] MEDS: hydroCHLOROthiazide 12.5 MG CAPSULE PO SCH (19:45)
[2020-08-20] MEDS: ENOXAPARIN 40 MG/0.4 ML SYRINGE SUBCUT SCH (03:28)
[2020-08-20] MEDS: oxyCODONE/ACETAMINOPHEN 5-325 MG TABLET PO PRN ×2 (04:24→18:12)
[2020-08-20] MEDS: PANTOPRAZOLE 40 MG TABLET PO SCH (09:14)
[2020-08-20] MEDS: GABAPENTIN 300 MG CAPSULE PO SCH ×3 (09:15→20:25)
[2020-08-20] MEDS: ASPIRIN 325 MG TABLET PO SCH (09:15)
[2020-08-20] MEDS: hydroCHLOROthiazide 12.5 MG CAPSULE PO SCH (09:15)
[2020-08-20] MEDS: ATORVASTATIN 40 MG TABLET PO SCH (09:15)
[2020-08-20] MEDS: LOSARTAN 50 MG TABLET PO SCH (09:15)
[2020-08-21] MEDS: oxyCODONE/ACETAMINOPHEN 5-325 MG TABLET PO PRN ×3 (00:36→18:21)
[2020-08-21] MEDS: ENOXAPARIN 40 MG/0.4 ML SYRINGE SUBCUT SCH (05:13)
[2020-08-21] MEDS: LOSARTAN 50 MG TABLET PO SCH (09:31)
[2020-08-21] MEDS: GABAPENTIN 300 MG CAPSULE PO SCH ×3 (09:31→20:17)
[2020-08-21] MEDS: ASPIRIN 325 MG TABLET PO SCH (09:31)
[2020-08-21] MEDS: hydroCHLOROthiazide 12.5 MG CAPSULE PO SCH (09:31)
[2020-08-21] MEDS: ATORVASTATIN 40 MG TABLET PO SCH (09:32)
[2020-08-21] MEDS: PANTOPRAZOLE 40 MG TABLET PO SCH (09:32)
[2020-08-22] MEDS: ENOXAPARIN 40 MG/0.4 ML SYRINGE SUBCUT SCH (04:20)
[2020-08-22] MEDS: ACETAMINOPHEN 325 MG TABLET PO PRN ×2 (06:25→13:09)
[2020-08-22] MEDS: ASPIRIN 325 MG TABLET PO SCH (09:12)
[2020-08-22] MEDS: LOSARTAN 50 MG TABLET PO SCH (09:12)
[2020-08-22] MEDS: GABAPENTIN 300 MG CAPSULE PO SCH ×3 (09:13→20:15)
[2020-08-22] MEDS: hydroCHLOROthiazide 12.5 MG CAPSULE PO SCH (09:13)
[2020-08-22] MEDS: ATORVASTATIN 40 MG TABLET PO SCH (09:13)
[2020-08-22] MEDS: PANTOPRAZOLE 40 MG TABLET PO SCH (09:14)
[2020-08-22] MEDS: oxyCODONE/ACETAMINOPHEN 5-325 MG TABLET PO PRN (14:52)
[2020-08-23] MEDS: oxyCODONE/ACETAMINOPHEN 5-325 MG TABLET PO PRN ×4 (00:25→22:55)
[2020-08-23] MEDS: ENOXAPARIN 40 MG/0.4 ML SYRINGE SUBCUT SCH (03:45)
[2020-08-23] MEDS: ASPIRIN 325 MG TABLET PO SCH (09:33)
[2020-08-23] MEDS: ATORVASTATIN 40 MG TABLET PO SCH (09:33)
[2020-08-23] MEDS: PANTOPRAZOLE 40 MG TABLET PO SCH (09:33)
[2020-08-23] MEDS: LOSARTAN 50 MG TABLET PO SCH (09:33)
[2020-08-23] MEDS: hydroCHLOROthiazide 12.5 MG CAPSULE PO SCH (09:33)
[2020-08-23] MEDS: GABAPENTIN 300 MG CAPSULE PO SCH ×3 (09:33→20:28)
[2020-08-24] MEDS: ENOXAPARIN 40 MG/0.4 ML SYRINGE SUBCUT SCH (04:15)
[2020-08-24] MEDS: LOSARTAN 50 MG TABLET PO SCH (09:04)
[2020-08-24] MEDS: ASPIRIN 325 MG TABLET PO SCH (09:04)
[2020-08-24] MEDS: ATORVASTATIN 40 MG TABLET PO SCH (09:05)
[2020-08-24] MEDS: oxyCODONE/ACETAMINOPHEN 5-325 MG TABLET PO PRN ×2 (09:05→18:17)
[2020-08-24] MEDS: PANTOPRAZOLE 40 MG TABLET PO SCH (09:05)
[2020-08-24] MEDS: hydroCHLOROthiazide 12.5 MG CAPSULE PO SCH (09:05)
[2020-08-24] MEDS: GABAPENTIN 300 MG CAPSULE PO SCH ×3 (09:05→20:52)
[2020-08-25] MEDS: oxyCODONE/ACETAMINOPHEN 5-325 MG TABLET PO PRN ×2 (01:16→08:37)
[2020-08-25] MEDS: ENOXAPARIN 40 MG/0.4 ML SYRINGE SUBCUT SCH (05:25)
[2020-08-25 07:55] VITALS: BP 133/69
[2020-08-25] MEDS: PANTOPRAZOLE 40 MG TABLET PO SCH (08:30)
[2020-08-25] MEDS: ASPIRIN 325 MG TABLET PO SCH (08:31)
[2020-08-25] MEDS: GABAPENTIN 300 MG CAPSULE PO SCH (08:31)
[2020-08-25] MEDS: ATORVASTATIN 40 MG TABLET PO SCH (08:31)
[2020-08-25] MEDS: hydroCHLOROthiazide 12.5 MG CAPSULE PO SCH (08:31)
[2020-08-25] MEDS: LOSARTAN 50 MG TABLET PO SCH (08:32)
[2020-08-25] MEDS ORDERED: BACITRACIN OINT 0.9 GM PACK TOP SCH (09:00)
== END 2020-08-25 10:30 | disposition swing bed (61) | DRG 464 ==
LOC: N.3E 09:43
PROVIDERS: ADMIT Surgery; ATTEND Surgery

== ENCOUNTER 2020-11-07 17:33 | Observation (INO) ==
[2020-11-07] MEDS ORDERED: cefTRIAXone 1,000 MG in SODIUM CHLORIDE 0.9% 100 ML IV STA (19:00)
[2020-11-07] MEDS ORDERED: VANCOMYCIN INJ 1,000 MG in SODIUM CHLORIDE 0.9% 250 ML IV STA (19:01)
[2020-11-07] MEDS ORDERED: SODIUM CHLORIDE 0.9% 1,000 ML IV STA (19:01)
[2020-11-07] MEDS ORDERED: cefTRIAXone 1,000 MG VIAL ONE (19:14)
[2020-11-07 19:21] LABS: Basophils % 0.4 % (0.0-0.8); Eosinophils # 0.1 10*3/uL (0.0-0.87); Eosinophils % 0.7 % (0.00-10.9); Hematocrit 39.2 VOL% (42.0-52.0); Hemoglobin 12.4 GM/DL (14.0-18.0); Immature Granulocytes % 0.3 %; Immature Granulocytes Absolute 0.03 #; Lymphocytes # 1.3 10*3/uL (1.4-4.0); Lymphocytes % 14.3 % (21.2-54.2); Mean Corpuscular HGB Conc 31.6 GM/DL (32-36); Mean Corpuscular Volume 83.2 FL (87-102); Mean Platelet Volume 10.2 FL (9.6-12.0); Monocytes % 8.8 % (1.7-12.7); Neutrophils % 75.5 % (38.7-73.9); Platelet Count 229 T/CUMM (130-400); Red Blood Count 4.71 MC/CUMM (3.8-5.5); Red Cell Distribution Width 18.8 % (9.3-17.3)
[2020-11-07] MEDS ORDERED: KETOROLAC 30 MG/1 ML VIAL IV STA (19:22)
[2020-11-07 19:42] LABS: PT Patient Result 11.1 SECS (9.8-11.9); Partial Thromboplastin Time 24.9 SECS (23.9-33.8)
[2020-11-07 19:43] LABS: Albumin 4.1 G/DL (3.4-5.0); Bilirubin,Total 0.5 MG/DL (0.2-1.0); Calcium 9.6 MG/DL (8.5-10.1); Osmolality,Calculated 278.5 MOS/KG (273-304); Potassium 3.6 MMOL/L (3.5-5.1); Total Protein 7.7 G/DL (6.4-8.2)
[2020-11-07] MEDS ORDERED: DEXTROSE 50% 25 GM/50 ML VIAL IV PRN (21:06)
[2020-11-07] MEDS ORDERED: ONDANSETRON 4 MG/2 ML VIAL IV PRN (21:06)
[2020-11-07] MEDS ORDERED: ACETAMINOPHEN 325 MG TABLET PO PRN (21:06)
[2020-11-07] MEDS ORDERED: GLUCAGON 1 MG VIAL IM PRN (21:06)
[2020-11-07] MEDS ORDERED: INFLUENZA VIRUS VACCINE 0.5 ML SYRINGE IM ONE (23:09)
[2020-11-08] MEDS: ENOXAPARIN 40 MG/0.4 ML SYRINGE SUBCUT SCH ×2 (00:26→20:33)
[2020-11-08] MEDS: VANCOMYCIN INJ 1,250 MG in SODIUM CHLORIDE 0.9% 250 ML IV SCH ×2 (00:27→12:04)
[2020-11-08 05:24] LABS: Basophils % 0.5 % (0.0-0.8); Eosinophils # 0.1 10*3/uL (0.0-0.87); Eosinophils % 1.5 % (0.00-10.9); Hematocrit 35.1 VOL% (42.0-52.0); Hemoglobin 11.3 GM/DL (14.0-18.0); Immature Granulocytes % 0.2 %; Immature Granulocytes Absolute 0.01 #; Lymphocytes # 1.8 10*3/uL (1.4-4.0); Lymphocytes % 29.6 % (21.2-54.2); Mean Corpuscular HGB Conc 32.2 GM/DL (32-36); Mean Platelet Volume 10.2 FL (9.6-12.0); Monocytes % 11.3 % (1.7-12.7); Neutrophils % 56.9 % (38.7-73.9); Platelet Count 188 T/CUMM (130-400); Red Blood Count 4.28 MC/CUMM (3.8-5.5); Red Cell Distribution Width 18.7 % (9.3-17.3); White Blood Count 6.2 T/CUMM (4-12)
[2020-11-08 05:43] LABS: Albumin 3.4 G/DL (3.4-5.0); Bilirubin,Total 0.7 MG/DL (0.2-1.0); Calcium 9.2 MG/DL (8.5-10.1); Osmolality,Calculated 278.4 MOS/KG (273-304); Potassium 3.4 MMOL/L (3.5-5.1); Total Protein 6.2 G/DL (6.4-8.2)
[2020-11-08 06:32] LABS: Atypical Lymphocytes Few; Burr Cells Slight; Lymphocytes 27 % (20-55); Polychromasia Slight; Segmented Neutrophils 63 % (50-85); Total Cells Counted 100
[2020-11-08 06:33] LABS: Ovalocytes Few; Platelet Estimate Adequate
[2020-11-08] MEDS: PIPERACILLIN/TAZOBACTAM 3,375 MG in SODIUM CHLORIDE 0.9% 100 ML IV SCH ×2 (09:08→16:35)
[2020-11-08] MEDS: PANTOPRAZOLE 40 MG TABLET PO SCH (09:08)
[2020-11-08] MEDS: ATORVASTATIN 40 MG TABLET PO SCH (09:16)
[2020-11-08] MEDS: LOSARTAN 50 MG TABLET PO SCH (09:16)
[2020-11-08] MEDS: POTASSIUM CHLORIDE 20 MEQ TABLET PO PRN ×3 (14:12→17:40)
[2020-11-08] MEDS: GABAPENTIN 100 MG CAPSULE PO SCH (20:32)
[2020-11-09] MEDS: VANCOMYCIN INJ 1,250 MG in SODIUM CHLORIDE 0.9% 250 ML IV SCH ×2 (00:06→13:48)
[2020-11-09] MEDS: HYDROmorphone 2 MG/1 ML VIAL IV PRN ×2 (00:06→10:25)
[2020-11-09] MEDS: PIPERACILLIN/TAZOBACTAM 3,375 MG in SODIUM CHLORIDE 0.9% 100 ML IV SCH ×3 (02:10→16:51)
[2020-11-09 06:18] LABS: Basophils % 0.6 % (0.0-0.8); Eosinophils # 0.1 10*3/uL (0.0-0.87); Eosinophils % 2.1 % (0.00-10.9); Hematocrit 35.8 VOL% (42.0-52.0); Hemoglobin 11.3 GM/DL (14.0-18.0); Immature Granulocytes % 0.3 %; Immature Granulocytes Absolute 0.02 #; Lymphocytes # 1.6 10*3/uL (1.4-4.0); Lymphocytes % 23.2 % (21.2-54.2); Mean Corpuscular HGB Conc 31.6 GM/DL (32-36); Mean Corpuscular Volume 83.1 FL (87-102); Mean Platelet Volume 10.7 FL (9.6-12.0); Neutrophils % 62.8 % (38.7-73.9); Platelet Count 200 T/CUMM (130-400); Red Blood Count 4.31 MC/CUMM (3.8-5.5); Red Cell Distribution Width 18.3 % (9.3-17.3); White Blood Count 6.7 T/CUMM (4-12)
[2020-11-09 06:56] LABS: Atypical Lymphocytes Few; Hypochromasia Slight; Microcytosis Slight; Platelet Estimate Normal
[2020-11-09 07:09] LABS: Calcium 8.9 MG/DL (8.5-10.1); Osmolality,Calculated 280.3 MOS/KG (273-304); Potassium 3.9 MMOL/L (3.5-5.1)
[2020-11-09] MEDS: INSULIN REGULAR 100 UNIT/ML SUBCUT SCH ×4 (07:46→21:25)
[2020-11-09] MEDS: FERROUS SULFATE 325 MG TABLET PO SCH (08:22)
[2020-11-09] MEDS: PANTOPRAZOLE 40 MG TABLET PO SCH (08:22)
[2020-11-09] MEDS: ATORVASTATIN 40 MG TABLET PO SCH (08:23)
[2020-11-09] MEDS: LOSARTAN 50 MG TABLET PO SCH (08:23)
[2020-11-09] MEDS ORDERED: hydroCHLOROthiazide 25 MG TABLET PO SCH (09:00)
[2020-11-09] MEDS: GABAPENTIN 100 MG CAPSULE PO SCH (20:00)
[2020-11-09] MEDS: ENOXAPARIN 40 MG/0.4 ML SYRINGE SUBCUT SCH (21:26)
[2020-11-10] MEDS: VANCOMYCIN INJ 1,250 MG in SODIUM CHLORIDE 0.9% 250 ML IV SCH (01:07)
[2020-11-10] MEDS: PIPERACILLIN/TAZOBACTAM 3,375 MG in SODIUM CHLORIDE 0.9% 100 ML IV SCH (03:40)
[2020-11-10 05:51] LABS: Osmolality,Calculated 275.7 MOS/KG (273-304); Potassium 3.7 MMOL/L (3.5-5.1); Risk Ratio 2.62; VLDL CHOLESTEROL 10.6 MG/DL
[2020-11-10] MEDS ORDERED: hydroCHLOROthiazide 12.5 MG CAPSULE PO SCH (09:00)
[2020-11-10] MEDS ORDERED: amLODIPine 5 MG TABLET PO SCH (09:00)
[2020-11-10] MEDS: FERROUS SULFATE 325 MG TABLET PO SCH (09:23)
[2020-11-10] MEDS: PANTOPRAZOLE 40 MG TABLET PO SCH (09:24)
[2020-11-10] MEDS: INSULIN REGULAR 100 UNIT/ML SUBCUT SCH (09:24)
[2020-11-10] MEDS: LOSARTAN 50 MG TABLET PO SCH (09:24)
[2020-11-10] MEDS: ATORVASTATIN 40 MG TABLET PO SCH (09:24)
[2020-11-10 10:35] VITALS: BP 187/90
== END 2020-11-10 11:06 | disposition home or self-care (01) ==
LOC: N.ED 17:33 → N.EDINP 17:33 → N.5E 22:56
PROVIDERS: ADMIT Internal Medicine; ATTEND Internal Medicine

== ENCOUNTER 2020-11-22 12:05 | Observation (INO) ==
[2020-11-22 14:14] LABS: Basophils # 0.1 10*3/uL (0.0-0.2); Basophils % 0.6 % (0.0-0.8); Eosinophils # 0.1 10*3/uL (0.0-0.87); Eosinophils % 0.6 % (0.00-10.9); Hematocrit 40.9 VOL% (42.0-52.0); Hemoglobin 12.9 GM/DL (14.0-18.0); Immature Granulocytes % 0.6 %; Immature Granulocytes Absolute 0.05 #; Lymphocytes # 1.4 10*3/uL (1.4-4.0); Lymphocytes % 16.2 % (21.2-54.2); Mean Corpuscular HGB Conc 31.5 GM/DL (32-36); Mean Corpuscular Volume 83.1 FL (87-102); Mean Platelet Volume 10.2 FL (9.6-12.0); Monocytes % 6.9 % (1.7-12.7); Neutrophils % 75.1 % (38.7-73.9); Platelet Count 269 T/CUMM (130-400); Red Blood Count 4.92 MC/CUMM (3.8-5.5); White Blood Count 8.8 T/CUMM (4-12)
[2020-11-22] MEDS ORDERED: MORPHINE 4 MG/1 ML VIAL IV STA (14:22)
[2020-11-22 14:31] LABS: Bilirubin,Total 0.5 MG/DL (0.2-1.0); Calcium 9.7 MG/DL (8.5-10.1); Osmolality,Calculated 275.8 MOS/KG (273-304); Potassium 3.7 MMOL/L (3.5-5.1)
[2020-11-22] MEDS ORDERED: PIPERACILLIN/TAZOBACTAM 3,375 MG in SODIUM CHLORIDE 0.9% 100 ML IV STA (14:36)
[2020-11-22] MEDS ORDERED: VANCOMYCIN INJ 1,250 MG in SODIUM CHLORIDE 0.9% 250 ML IV ONE (14:36)
[2020-11-22] MEDS ORDERED: SODIUM CHLORIDE 0.9% 500 ML IV STA (14:37)
[2020-11-22 15:11] LABS: Sedimentation Rate-Westergren 11 MM/HR (0-20)
[2020-11-22 15:16] LABS: Bilirubin,Urine Negative (Negative); Blood, Urine Negative (Negative); Glucose,Urine (UA) Negative (Negative); Ketones,Urine Negative (Negative); Mucus,Urine Occasional /LPF (Occasional); Nitrite,Urine Negative (Negative); Protein,Urine Negative; RBC,Urine 1 /HPF (0-4); Urine Appearance CLEAR (Clear); Urine Color Straw (Yellow); Urine Specific Gravity 1.009 (1.001-1.035); Urine Urobilinogen < 2.0 EU/DL (0.2-1.0); WBC,Urine 3 /HPF (0-6)
[2020-11-22] MEDS ORDERED: MORPHINE 4 MG/1 ML VIAL IM STA (16:05)
[2020-11-22] MEDS ORDERED: ACETAMINOPHEN 325 MG TABLET PO PRN (16:47)
[2020-11-22] MEDS ORDERED: hydrALAZINE 20 MG/1 ML VIAL IV PRN (16:47)
[2020-11-22] MEDS ORDERED: GLUCAGON 1 MG VIAL IM PRN (16:47)
[2020-11-22] MEDS ORDERED: DEXTROSE 50% 25 GM/50 ML VIAL IV PRN (16:47)
[2020-11-22] MEDS: SODIUM CHLORIDE 0.9% 1,000 ML IV SCH (18:59)
[2020-11-22] MEDS: NICOTINE 21 MG/24 HR PATCH TRANSDERM SCH (20:34)
[2020-11-22] MEDS: ENOXAPARIN 40 MG/0.4 ML SYRINGE SUBCUT SCH (20:34)
[2020-11-22] MEDS: cefTRIAXone 1,000 MG in SYRINGE 1 EACH IV SCH (20:36)
[2020-11-22] MEDS: MORPHINE 4 MG/1 ML VIAL IV PRN (20:39)
[2020-11-22] MEDS: VANCOMYCIN INJ 1,250 MG in SODIUM CHLORIDE 0.9% 250 ML IV SCH (20:43)
[2020-11-23] MEDS: MORPHINE 4 MG/1 ML VIAL IV PRN ×3 (01:49→18:47)
[2020-11-23 05:47] LABS: Basophils # 0.1 10*3/uL (0.0-0.2); Basophils % 0.7 % (0.0-0.8); Eosinophils # 0.1 10*3/uL (0.0-0.87); Eosinophils % 1.3 % (0.00-10.9); Hematocrit 38.3 VOL% (42.0-52.0); Hemoglobin 12.2 GM/DL (14.0-18.0); Immature Granulocytes % 0.5 %; Immature Granulocytes Absolute 0.04 #; Lymphocytes # 1.6 10*3/uL (1.4-4.0); Lymphocytes % 18.5 % (21.2-54.2); Mean Corpuscular HGB Conc 31.9 GM/DL (32-36); Mean Corpuscular Volume 82.9 FL (87-102); Mean Platelet Volume 10.5 FL (9.6-12.0); Platelet Count 247 T/CUMM (130-400); Red Blood Count 4.62 MC/CUMM (3.8-5.5); Red Cell Distribution Width 17.8 % (9.3-17.3); White Blood Count 8.7 T/CUMM (4-12)
[2020-11-23 06:04] LABS: Calcium 9.4 MG/DL (8.5-10.1); Osmolality,Calculated 277.4 MOS/KG (273-304); Potassium 3.6 MMOL/L (3.5-5.1)
[2020-11-23] MEDS: LOSARTAN 50 MG TABLET PO SCH (08:47)
[2020-11-23] MEDS: NICOTINE 21 MG/24 HR PATCH TRANSDERM SCH (08:48)
[2020-11-23] MEDS ORDERED: hydroCHLOROthiazide 12.5 MG CAPSULE PO SCH (09:00)
[2020-11-23] MEDS: PANTOPRAZOLE 40 MG TABLET PO SCH (09:52)
[2020-11-23] MEDS: SODIUM CHLORIDE 0.9% 1,000 ML IV SCH (10:03)
[2020-11-23] MEDS: VANCOMYCIN INJ 1,250 MG in SODIUM CHLORIDE 0.9% 250 ML IV SCH ×2 (10:03→20:46)
[2020-11-23] MEDS: ENOXAPARIN 40 MG/0.4 ML SYRINGE SUBCUT SCH (20:40)
[2020-11-23] MEDS: cefTRIAXone 1,000 MG in SYRINGE 1 EACH IV SCH (20:40)
[2020-11-24] MEDS: SODIUM CHLORIDE 0.9% 1,000 ML IV SCH ×2 (01:05→20:58)
[2020-11-24] MEDS: MORPHINE 4 MG/1 ML VIAL IV PRN ×2 (04:01→07:28)
[2020-11-24 06:11] LABS: Basophils # 0.1 10*3/uL (0.0-0.2); Basophils % 0.6 % (0.0-0.8); Eosinophils # 0.3 10*3/uL (0.0-0.87); Eosinophils % 3.3 % (0.00-10.9); Hematocrit 39.1 VOL% (42.0-52.0); Hemoglobin 12.1 GM/DL (14.0-18.0); Immature Granulocytes % 0.3 %; Immature Granulocytes Absolute 0.02 #; Lymphocytes # 1.5 10*3/uL (1.4-4.0); Lymphocytes % 19.4 % (21.2-54.2); Mean Corpuscular HGB Conc 30.9 GM/DL (32-36); Mean Corpuscular Volume 83.9 FL (87-102); Mean Platelet Volume 10.5 FL (9.6-12.0); Neutrophils % 67.4 % (38.7-73.9); Platelet Count 225 T/CUMM (130-400); Red Blood Count 4.66 MC/CUMM (3.8-5.5); Red Cell Distribution Width 17.6 % (9.3-17.3); White Blood Count 7.9 T/CUMM (4-12)
[2020-11-24 06:37] LABS: Calcium 9.6 MG/DL (8.5-10.1); Osmolality,Calculated 275.5 MOS/KG (273-304); Potassium 3.8 MMOL/L (3.5-5.1)
[2020-11-24] MEDS ORDERED: LIDOCAINE 2% 5 ML VIAL ONE (07:35)
[2020-11-24] MEDS ORDERED: ONDANSETRON 4 MG/2 ML VIAL ONE (07:35)
[2020-11-24] MEDS ORDERED: propofoL 200 MG/20 ML VIAL IV ONE (07:35)
[2020-11-24] MEDS ORDERED: DEXAMETHASONE 4 MG/1 ML VIAL ONE ×2 (07:35→08:37)
[2020-11-24] MEDS ORDERED: SEVOFLURANE 1 UNIT/15 MINUTE INH ONE ×3 (07:35→08:50)
[2020-11-24] MEDS ORDERED: fentaNYL 100 MCG/2 ML VIAL ONE (07:38)
[2020-11-24] MEDS ORDERED: ACETAMINOPHEN 1,000 MG/100 ML VIAL IV ONE (07:42)
[2020-11-24] MEDS ORDERED: KETOROLAC 30 MG/1 ML VIAL ONE (08:03)
[2020-11-24] MEDS ORDERED: BUPIVACAINE MPF 0.25% 30 ML VIAL ONE (08:23)
[2020-11-24] MEDS ORDERED: LIDOCAINE 1% 20 ML VIAL ONE (08:23)
[2020-11-24] MEDS ORDERED: ePHEDrine 50 MG/ML VIAL ONE (08:30)
[2020-11-24] MEDS: hydroCHLOROthiazide 25 MG TABLET PO SCH (10:33)
[2020-11-24] MEDS: PANTOPRAZOLE 40 MG TABLET PO SCH (10:33)
[2020-11-24] MEDS: NICOTINE 21 MG/24 HR PATCH TRANSDERM SCH (10:33)
[2020-11-24] MEDS: ONDANSETRON 4 MG/2 ML VIAL IV PRN (10:33)
[2020-11-24] MEDS: LOSARTAN 50 MG TABLET PO SCH (10:33)
[2020-11-24] MEDS: VANCOMYCIN INJ 1,250 MG in SODIUM CHLORIDE 0.9% 250 ML IV SCH ×2 (10:35→22:07)
[2020-11-24] MEDS: cefTRIAXone 1,000 MG in SYRINGE 1 EACH IV SCH (20:58)
[2020-11-24] MEDS: ENOXAPARIN 40 MG/0.4 ML SYRINGE SUBCUT SCH (20:59)
[2020-11-25] MEDS: SODIUM CHLORIDE 0.9% 1,000 ML IV SCH (02:00)
[2020-11-25 07:42] LABS: Basophils % 0.2 % (0.0-0.8); Eosinophils % 0.3 % (0.00-10.9); Hemoglobin 11.4 GM/DL (14.0-18.0); Immature Granulocytes % 0.6 %; Immature Granulocytes Absolute 0.07 #; Lymphocytes # 1.7 10*3/uL (1.4-4.0); Mean Corpuscular HGB Conc 31.7 GM/DL (32-36); Mean Corpuscular Volume 83.3 FL (87-102); Mean Platelet Volume 9.7 FL (9.6-12.0); Monocytes % 8.8 % (1.7-12.7); Neutrophils % 76.1 % (38.7-73.9); Platelet Count 254 T/CUMM (130-400); Red Blood Count 4.32 MC/CUMM (3.8-5.5); Red Cell Distribution Width 17.6 % (9.3-17.3); White Blood Count 11.9 T/CUMM (4-12)
[2020-11-25] MEDS: hydroCHLOROthiazide 25 MG TABLET PO SCH (08:03)
[2020-11-25] MEDS: PANTOPRAZOLE 40 MG TABLET PO SCH (08:04)
[2020-11-25] MEDS: LOSARTAN 50 MG TABLET PO SCH (08:04)
[2020-11-25] MEDS: NICOTINE 21 MG/24 HR PATCH TRANSDERM SCH (08:04)
[2020-11-25 08:08] LABS: Calcium 9.3 MG/DL (8.5-10.1); Osmolality,Calculated 279.5 MOS/KG (273-304); Potassium 3.7 MMOL/L (3.5-5.1)
[2020-11-25] MEDS: MORPHINE 4 MG/1 ML VIAL IV PRN (09:29)
[2020-11-25] MEDS: ONDANSETRON 4 MG/2 ML VIAL IV PRN (09:30)
[2020-11-25] MEDS: VANCOMYCIN INJ 1,250 MG in SODIUM CHLORIDE 0.9% 250 ML IV SCH (10:56)
[2020-11-25 11:36] VITALS: BP 180/70
== END 2020-11-25 13:45 | disposition home health service (06) ==
LOC: N.ED 12:05 → N.EDINP 12:05 → SUATTDRO 16:47 → N.5E 17:59
PROVIDERS: ADMIT Emergency Medicine; ATTEND Family Medicine

== ENCOUNTER 2020-12-23 05:59 | Inpatient (IN) ==
[2020-12-22 12:54] LABS: Basophils # 0.1 10*3/uL (0.0-0.2); Basophils % 0.7 % (0.0-0.8); Eosinophils # 0.1 10*3/uL (0.0-0.87); Eosinophils % 0.8 % (0.00-10.9); Hematocrit 38.8 VOL% (42.0-52.0); Hemoglobin 12.1 GM/DL (14.0-18.0); Immature Granulocytes % 0.4 %; Immature Granulocytes Absolute 0.03 #; Lymphocytes # 1.3 10*3/uL (1.4-4.0); Lymphocytes % 16.4 % (21.2-54.2); Mean Corpuscular HGB Conc 31.2 GM/DL (32-36); Mean Corpuscular Volume 84.2 FL (87-102); Mean Platelet Volume 10.2 FL (9.6-12.0); Neutrophils % 71.7 % (38.7-73.9); Platelet Count 302 T/CUMM (130-400); Red Blood Count 4.61 MC/CUMM (3.8-5.5); White Blood Count 7.7 T/CUMM (4-12)
[2020-12-22 13:20] LABS: Calcium 9.4 MG/DL (8.5-10.1); Osmolality,Calculated 278.3 MOS/KG (273-304); Potassium 3.7 MMOL/L (3.5-5.1)
[~2020-12-23 05:59] MED LIST: ceFAZolin 1,000 MG VIAL ONE
[2020-12-23] MEDS ORDERED: LACTATED RINGERS 1,000 ML IV SCH (06:00)
[2020-12-23] MEDS ORDERED: fentaNYL 100 MCG/2 ML VIAL ONE (06:39)
[2020-12-23] MEDS ORDERED: propofoL 200 MG/20 ML VIAL IV ONE (06:39)
[2020-12-23] MEDS ORDERED: MIDAZOLAM 2 MG/2 ML VIAL ONE (06:39)
[2020-12-23] MEDS ORDERED: LIDOCAINE 2% 5 ML VIAL ONE (06:39)
[2020-12-23] MEDS ORDERED: LIDOCAINE 1% 20 ML VIAL ONE (06:42)
[2020-12-23] MEDS ORDERED: DIAZEPAM 5 MG TABLET PO ONE (06:44)
[2020-12-23] MEDS ORDERED: FAMOTIDINE 20 MG TABLET PO ONE (06:44)
[2020-12-23] MEDS ORDERED: hydrALAZINE 20 MG/1 ML VIAL ONE (07:39)
[2020-12-23] MEDS ORDERED: ONDANSETRON 4 MG/2 ML VIAL ONE (07:40)
[2020-12-23] MEDS ORDERED: SEVOFLURANE 1 UNIT/15 MINUTE INH ONE (08:12)
[2020-12-23] MEDS ORDERED: ALBUTEROL/IPRATROPIUM 3 ML NEB RESP TX PRN (08:44)
[2020-12-23] MEDS ORDERED: BISACODYL 5 MG TABLET PO PRN (08:44)
[2020-12-23] MEDS ORDERED: ACETAMINOPHEN 325 MG TABLET PO PRN (08:44)
[2020-12-23] MEDS ORDERED: ONDANSETRON 4 MG/2 ML VIAL IV PRN (08:44)
[2020-12-23] MEDS: PANTOPRAZOLE 40 MG TABLET PO SCH (17:23)
[2020-12-23] MEDS: CLINDAMYCIN INJ 300 MG/50 ML PREMIX IV SCH (21:34)
[2020-12-23] MEDS: HYDROmorphone 2 MG/1 ML VIAL IV PRN (21:41)
[2020-12-24] MEDS: CLINDAMYCIN INJ 300 MG/50 ML PREMIX IV SCH ×4 (01:10→20:26)
[2020-12-24 05:45] LABS: Basophils % 0.5 % (0.0-0.8); Eosinophils # 0.2 10*3/uL (0.0-0.87); Eosinophils % 3.1 % (0.00-10.9); Hematocrit 37.8 VOL% (42.0-52.0); Hemoglobin 12.1 GM/DL (14.0-18.0); Immature Granulocytes % 0.4 %; Immature Granulocytes Absolute 0.03 #; Lymphocytes # 1.6 10*3/uL (1.4-4.0); Lymphocytes % 21.4 % (21.2-54.2); Mean Corpuscular Volume 83.8 FL (87-102); Mean Platelet Volume 10.3 FL (9.6-12.0); Monocytes % 10.8 % (1.7-12.7); Neutrophils % 63.8 % (38.7-73.9); Platelet Count 276 T/CUMM (130-400); Red Blood Count 4.51 MC/CUMM (3.8-5.5); Red Cell Distribution Width 15.9 % (9.3-17.3); White Blood Count 7.5 T/CUMM (4-12)
[2020-12-24 06:13] LABS: Calcium 9.7 MG/DL (8.5-10.1); Osmolality,Calculated 277.5 MOS/KG (273-304)
[2020-12-24] MEDS: hydroCHLOROthiazide 25 MG TABLET PO SCH (08:24)
[2020-12-24] MEDS: LOSARTAN 50 MG TABLET PO SCH (08:24)
[2020-12-24] MEDS: PANTOPRAZOLE 40 MG TABLET PO SCH (08:24)
[2020-12-24] MEDS: hydrALAZINE 20 MG/1 ML VIAL IV PRN ×2 (08:24→16:31)
[2020-12-24] MEDS: HYDROmorphone 2 MG/1 ML VIAL IV PRN ×3 (09:15→18:22)
[2020-12-24 09:47] LABS: PT Patient Result 11.7 SECS (10.5-12.0)
[2020-12-24] MEDS ORDERED: HEPARIN/NACL 0.9% 2 UNITS/ML 4,000 UNIT/2,000 ML BAG IV ONE (13:01)
[2020-12-24] MEDS ORDERED: DIAZEPAM 5 MG TABLET PO ONE (13:20)
[2020-12-24] MEDS ORDERED: fentaNYL 100 MCG/2 ML VIAL IV ONE (13:20)
[2020-12-24] MEDS ORDERED: MIDAZOLAM 2 MG/2 ML VIAL IV ONE (13:20)
[2020-12-24] MEDS ORDERED: HEPARIN 5,000 UNIT/1 ML VIAL ONE (14:25)
[2020-12-24] MEDS ORDERED: ALTEPLASE 2 MG VIAL ONE (15:26)
[2020-12-24] MEDS: amLODIPine 5 MG TABLET PO SCH ×2 (17:37→20:26)
[2020-12-25] MEDS: CLINDAMYCIN INJ 300 MG/50 ML PREMIX IV SCH ×4 (02:04→20:24)
[2020-12-25] MEDS: hydroCHLOROthiazide 25 MG TABLET PO SCH (09:18)
[2020-12-25] MEDS: PANTOPRAZOLE 40 MG TABLET PO SCH (09:19)
[2020-12-25] MEDS: LOSARTAN 50 MG TABLET PO SCH (09:19)
[2020-12-25] MEDS: NICOTINE 21 MG/24 HR PATCH TRANSDERM SCH (09:19)
[2020-12-25] MEDS: amLODIPine 5 MG TABLET PO SCH (20:22)
[2020-12-25] MEDS: HYDROmorphone 2 MG/1 ML VIAL IV PRN (22:50)
[2020-12-26] MEDS: CLINDAMYCIN INJ 300 MG/50 ML PREMIX IV SCH ×4 (01:16→23:27)
[2020-12-26] MEDS: HYDROmorphone 2 MG/1 ML VIAL IV PRN ×3 (03:12→23:27)
[2020-12-26] MEDS ORDERED: VANCOMYCIN INJ 1,000 MG in SODIUM CHLORIDE 0.9% 250 ML IV ONE (06:30)
[2020-12-26] MEDS ORDERED: LACTATED RINGERS 1,000 ML IV SCH (09:00)
[2020-12-26] MEDS ORDERED: fentaNYL 100 MCG/2 ML VIAL ONE (09:25)
[2020-12-26] MEDS ORDERED: DEXMEDETOMIDINE 200 MCG/2 ML VIAL ONE (09:25)
[2020-12-26] MEDS ORDERED: ETOMIDATE 40 MG/20 ML VIAL IV ONE ×2 (09:31→10:09)
[2020-12-26] MEDS ORDERED: HEPARIN 5,000 UNIT/1 ML VIAL ONE (09:41)
[2020-12-26] MEDS ORDERED: HEPARIN 10,000 UNIT/10 ML VIAL ONE (10:00)
[2020-12-26] MEDS ORDERED: PHENYLEPHRINE 1 MG/10 ML SYRINGE IV ONE (10:08)
[2020-12-26] MEDS ORDERED: LIDOCAINE 2% 5 ML VIAL ONE (10:09)
[2020-12-26] MEDS ORDERED: propofoL 200 MG/20 ML VIAL IV ONE (10:09)
[2020-12-26] MEDS ORDERED: ROCURONIUM 50 MG/5 ML VIAL IV ONE (10:09)
[2020-12-26] MEDS ORDERED: PROTAMINE SULFATE 50 MG/5 ML VIAL IV ONE (10:45)
[2020-12-26] MEDS ORDERED: GLYCOPYRROLATE 0.4 MG/2 ML VIAL ONE (10:48)
[2020-12-26] MEDS ORDERED: NEOSTIGMINE 10 MG/10 ML VIAL ONE (10:48)
[2020-12-26] MEDS ORDERED: TISSUE ADHESIVE 1 EACH APPLICATOR TOP ONE (10:50)
[2020-12-26] MEDS: LOSARTAN 50 MG TABLET PO SCH (12:27)
[2020-12-26] MEDS: hydroCHLOROthiazide 25 MG TABLET PO SCH (12:27)
[2020-12-26] MEDS: PANTOPRAZOLE 40 MG TABLET PO SCH (12:27)
[2020-12-26] MEDS: NICOTINE 21 MG/24 HR PATCH TRANSDERM SCH (12:27)
[2020-12-26] MEDS: amLODIPine 5 MG TABLET PO SCH (20:19)
[2020-12-27] MEDS: CLINDAMYCIN INJ 300 MG/50 ML PREMIX IV SCH ×4 (01:58→20:18)
[2020-12-27 07:02] LABS: Basophils % 0.2 % (0.0-0.8); Eosinophils % 0.2 % (0.00-10.9); Hematocrit 37.6 VOL% (42.0-52.0); Hemoglobin 12.4 GM/DL (14.0-18.0); Immature Granulocytes % 0.4 %; Immature Granulocytes Absolute 0.05 #; Lymphocytes # 1.3 10*3/uL (1.4-4.0); Lymphocytes % 10.2 % (21.2-54.2); Mean Corpuscular Volume 81.2 FL (87-102); Monocytes % 12.3 % (1.7-12.7); Neutrophils % 76.7 % (38.7-73.9); Platelet Count 245 T/CUMM (130-400); Red Blood Count 4.63 MC/CUMM (3.8-5.5); Red Cell Distribution Width 15.6 % (9.3-17.3); White Blood Count 12.6 T/CUMM (4-12)
[2020-12-27 07:17] LABS: Calcium 9.8 MG/DL (8.5-10.1); Osmolality,Calculated 274.1 MOS/KG (273-304); Potassium 3.4 MMOL/L (3.5-5.1)
[2020-12-27] MEDS: CLOPIDOGREL 75 MG TABLET PO SCH (09:46)
[2020-12-27] MEDS: hydroCHLOROthiazide 25 MG TABLET PO SCH (09:47)
[2020-12-27] MEDS: PANTOPRAZOLE 40 MG TABLET PO SCH (09:47)
[2020-12-27] MEDS: NICOTINE 21 MG/24 HR PATCH TRANSDERM SCH (09:47)
[2020-12-27] MEDS: LOSARTAN 50 MG TABLET PO SCH (09:47)
[2020-12-27] MEDS: ASPIRIN EC 81 MG TABLET PO SCH (09:47)
[2020-12-27] MEDS: HYDROmorphone 2 MG/1 ML VIAL IV PRN ×2 (09:48→14:23)
[2020-12-27] MEDS: amLODIPine 5 MG TABLET PO SCH (20:19)
[2020-12-28] MEDS: CLINDAMYCIN INJ 300 MG/50 ML PREMIX IV SCH ×4 (02:27→20:05)
[2020-12-28] MEDS: CLOPIDOGREL 75 MG TABLET PO SCH (09:15)
[2020-12-28] MEDS: hydroCHLOROthiazide 25 MG TABLET PO SCH (09:15)
[2020-12-28] MEDS: PANTOPRAZOLE 40 MG TABLET PO SCH (09:15)
[2020-12-28] MEDS: NICOTINE 21 MG/24 HR PATCH TRANSDERM SCH (09:15)
[2020-12-28] MEDS: LOSARTAN 50 MG TABLET PO SCH (09:15)
[2020-12-28] MEDS: ASPIRIN EC 81 MG TABLET PO SCH (09:15)
[2020-12-28] MEDS: amLODIPine 5 MG TABLET PO SCH (21:47)
[2020-12-28] MEDS: HYDROmorphone 2 MG/1 ML VIAL IV PRN (21:48)
[2020-12-29] MEDS: CLINDAMYCIN INJ 300 MG/50 ML PREMIX IV SCH ×4 (02:00→20:12)
[2020-12-29] MEDS ORDERED: LACTATED RINGERS 1,000 ML IV SCH (08:00)
[2020-12-29] MEDS ORDERED: LIDOCAINE 1% 20 ML VIAL ONE (08:21)
[2020-12-29] MEDS ORDERED: DEXMEDETOMIDINE 200 MCG/2 ML VIAL ONE (08:28)
[2020-12-29] MEDS ORDERED: propofoL 200 MG/20 ML VIAL IV ONE (08:39)
[2020-12-29] MEDS ORDERED: ETOMIDATE 40 MG/20 ML VIAL IV ONE (08:40)
[2020-12-29] MEDS ORDERED: SEVOFLURANE 1 UNIT/15 MINUTE INH ONE (09:26)
[2020-12-29] MEDS: CLOPIDOGREL 75 MG TABLET PO SCH (10:23)
[2020-12-29] MEDS: LOSARTAN 50 MG TABLET PO SCH (10:23)
[2020-12-29] MEDS: ASPIRIN EC 81 MG TABLET PO SCH (10:24)
[2020-12-29] MEDS: PANTOPRAZOLE 40 MG TABLET PO SCH (10:24)
[2020-12-29] MEDS: NICOTINE 21 MG/24 HR PATCH TRANSDERM SCH (10:24)
[2020-12-29] MEDS: hydroCHLOROthiazide 25 MG TABLET PO SCH (10:24)
[2020-12-29] MEDS: amLODIPine 5 MG TABLET PO SCH (20:11)
[2020-12-29] MEDS: HYDROmorphone 2 MG/1 ML VIAL IV PRN (23:46)
[2020-12-30] MEDS: CLINDAMYCIN INJ 300 MG/50 ML PREMIX IV SCH ×4 (01:27→20:35)
[2020-12-30] MEDS: hydroCHLOROthiazide 25 MG TABLET PO SCH (09:13)
[2020-12-30] MEDS: CLOPIDOGREL 75 MG TABLET PO SCH (09:13)
[2020-12-30] MEDS: PANTOPRAZOLE 40 MG TABLET PO SCH (09:13)
[2020-12-30] MEDS: ASPIRIN EC 81 MG TABLET PO SCH (09:13)
[2020-12-30] MEDS: LOSARTAN 50 MG TABLET PO SCH (09:13)
[2020-12-30] MEDS: NICOTINE 21 MG/24 HR PATCH TRANSDERM SCH (09:14)
[2020-12-30] MEDS: COLLAGENASE OINT 30 GM TUBE TOP SCH (09:54)
[2020-12-30] MEDS ORDERED: TUBERCULIN SKIN TEST 0.1 ML SYRINGE INTRADERM ONE (16:15)
[2020-12-30] MEDS: amLODIPine 5 MG TABLET PO SCH (20:35)
[2020-12-31] MEDS: CLINDAMYCIN INJ 300 MG/50 ML PREMIX IV SCH ×4 (02:05→20:54)
[2020-12-31] MEDS: HYDROmorphone 2 MG/1 ML VIAL IV PRN ×2 (06:35→14:03)
[2020-12-31] MEDS: CLOPIDOGREL 75 MG TABLET PO SCH (08:34)
[2020-12-31] MEDS: PANTOPRAZOLE 40 MG TABLET PO SCH (08:35)
[2020-12-31] MEDS: hydroCHLOROthiazide 25 MG TABLET PO SCH (08:35)
[2020-12-31] MEDS: ASPIRIN EC 81 MG TABLET PO SCH (08:35)
[2020-12-31] MEDS: LOSARTAN 50 MG TABLET PO SCH (08:35)
[2020-12-31] MEDS: NICOTINE 21 MG/24 HR PATCH TRANSDERM SCH (08:36)
[2020-12-31] MEDS ORDERED: SODIUM HYPOCHLORITE 0.25% IRRIG 473 ML BOTTLE TOP SCH (10:00)
[2020-12-31] MEDS: COLLAGENASE OINT 30 GM TUBE TOP SCH (10:10)
[2020-12-31] MEDS: ACETIC ACID 0.25% IRRIGATION 1,000 ML BOTTLE IRRIG SCH (14:10)
[2020-12-31] MEDS: amLODIPine 5 MG TABLET PO SCH (20:55)
[2021-01-01] MEDS: CLINDAMYCIN INJ 300 MG/50 ML PREMIX IV SCH ×2 (02:29→08:50)
[2021-01-01] MEDS: LOSARTAN 50 MG TABLET PO SCH (08:50)
[2021-01-01] MEDS: hydroCHLOROthiazide 25 MG TABLET PO SCH (08:50)
[2021-01-01] MEDS: PANTOPRAZOLE 40 MG TABLET PO SCH (08:50)
[2021-01-01] MEDS: CLOPIDOGREL 75 MG TABLET PO SCH (08:50)
[2021-01-01] MEDS: ASPIRIN EC 81 MG TABLET PO SCH (08:50)
[2021-01-01] MEDS: NICOTINE 21 MG/24 HR PATCH TRANSDERM SCH (08:51)
[2021-01-01] MEDS: COLLAGENASE OINT 30 GM TUBE TOP SCH (08:52)
[2021-01-01] MEDS: ACETIC ACID 0.25% IRRIGATION 1,000 ML BOTTLE IRRIG SCH (08:53)
[2021-01-01] MEDS: MEROPENEM 500 MG in SODIUM CHLORIDE 0.9% 100 ML IV SCH ×3 (12:24→23:10)
[2021-01-01] MEDS: amLODIPine 5 MG TABLET PO SCH (20:51)
[2021-01-02] MEDS: MEROPENEM 500 MG in SODIUM CHLORIDE 0.9% 100 ML IV SCH ×2 (05:08→10:41)
[2021-01-02] MEDS: LOSARTAN 50 MG TABLET PO SCH (08:27)
[2021-01-02] MEDS: hydroCHLOROthiazide 25 MG TABLET PO SCH (08:27)
[2021-01-02] MEDS: ASPIRIN EC 81 MG TABLET PO SCH (08:27)
[2021-01-02] MEDS: PANTOPRAZOLE 40 MG TABLET PO SCH (08:27)
[2021-01-02] MEDS: CLOPIDOGREL 75 MG TABLET PO SCH (08:27)
[2021-01-02] MEDS: COLLAGENASE OINT 30 GM TUBE TOP SCH (08:28)
[2021-01-02] MEDS: ACETIC ACID 0.25% IRRIGATION 1,000 ML BOTTLE IRRIG SCH (08:28)
[2021-01-02] MEDS: NICOTINE 21 MG/24 HR PATCH TRANSDERM SCH (08:32)
[2021-01-02 15:24] VITALS: BP 100/53
== END 2021-01-02 15:50 | disposition swing bed (61) | DRG 239 ==
LOC: N.OR 05:59 → N.SDSINP 06:01 → N.3E 15:36
PROVIDERS: ADMIT Surgery; ATTEND Surgery